=== PATIENT | male | born 1960 | race Caucasian/White ===

== ENCOUNTER 2024-07-23 09:43 | Outpatient (RCR) | payer MEDICARE, MEDICAID, SELFPAY ==
[2024-07-23 12:10] LABS: Basophils % (Auto) 1 % (0-2.5); Eosinophils # (Auto) 0.2 Thou/mm3 (0.0-0.5); Eosinophils % (Auto) 3 % (0-10); Hemoglobin 14.3 g/dL (13.5-16.0); Immature Granulocytes % (Auto) 1 % (0-0); Immature Granulocytes Auto 0.03 Thou/mm3 (0.00-0.00); Lymphocytes # (Auto) 2.4 Thou/mm3 (1.0-4.8); Lymphocytes % (Auto) 42 % (10-50); Mean Corpuscular Hemoglobin 32.3 pg (25.0-35.0); Mean Corpuscular Volume 95 fL (80-100); Monocytes # (Auto) 0.4 Thou/mm3 (0.0-0.8); Monocytes % (Auto) 8 % (0-12); Neutrophils # (Auto) 2.7 Thou/mm3 (1.8-7.7); Neutrophils % (Auto) 46 % (37-80); Nucleated Red Blood Cell % 0 /100 WBC (0); Platelet Count 192 Thou/mm3 (140-440); RDW Standard Deviation 43.2 fL (35.1-43.9); Red Blood Count 4.43 Miln/mm3 (4.50-5.90); White Blood Count 5.8 Thou/mm3 (3.8-10.6)
[2024-07-23 12:28] LABS: Alanine Aminotransferase 15 U/L (10-49); Albumin, Serum 4.4 gm/dL (3.4-4.8); Albumin/Globulin Ratio 2.2 (1.2-2.2); Alkaline Phosphatase 67 U/L (46-116); Anion Gap 7 (7-16); Aspartate Amino Transferase 24 U/L (0-34); BUN/Creatinine Ratio 22 Ratio (12-20); Blood Urea Nitrogen 24 mg/dL (9-23); Calcium 9.3 mg/dL (8.3-10.6); Calcium (Corrected) 9.3 mg/dL (8.5-10.1); Carbon Dioxide 25.7 mMol/L (20.0-31.0); Chloride 105 mMol/L (98-107); Creatinine (Component) 1.1 mg/dL (0.6-1.3); Free T4 (Free Thyroxine) 1.02 ng/dL (0.89-1.76); Glucose 89 mg/dL (74-106); Osmolality,Calculated 278 (275-295); Potassium 3.5 mMol/L (3.4-5.1); Sodium 138 mMol/L (136-145); Total Protein 6.4 gm/dL (5.7-8.2); eGFR > 60 See Note
[2024-07-23 12:29] LABS: Thyroid Stimulating Hormone 2.14 uIU/mL (0.55-4.78)
== END 2024-08-21 23:59 | disposition home or self-care (01) ==
LOC: SCTC 09:43
PROVIDERS: PCP Family Medicine; Referring Provider Family Medicine; Visit Provider Internal Medicine Hematology & Oncology
DX: C49.22 Malignant neoplasm of connective and soft tissue of left lower limb, including hip (principal); E03.9 Hypothyroidism, unspecified; Z89.512 Acquired absence of left leg below knee; I10 Essential (primary) hypertension; Z86.2 Personal history of diseases of the blood and blood-forming organs and certain disorders involving the immune mechanism
CPT/HCPCS: 36591; 80053; 84439; 84443; 85025; A4216; J1642

== ENCOUNTER 2024-09-09 08:49 | Outpatient (RCR) | payer MEDICARE, MEDICAID, SELFPAY ==
--- NOTE | 2024-09-05 20:56 | CTCFLWUP_ITS ---
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 He is doing well and have no complaints. His energy level have re turned. He has good appetite and not losing any weight Nicolette Bell is a 64-year-old ENG speaking male history of hypertension was recently foun d to have undifferentiated pleomorphic sarcoma of the left lower extremity. He was having pain in the left lower extremity for last 20 years. Recently started noticing masses w hich were ulcerating. he had one of the large ulcerating mass biopsied by Dr. Davion Bravo. 10/23/2022: Left lower leg mass excision? 10/31/2022: CT scan of the chest abdomen with IV contrast? 11/05/2022: PET/CT scan 11/07/2022: Ultrasound-guided fine-needle aspiration of the left inguinal lymph node? 11/22/2022: Patient underwent left knee amputation 01/08/2023: CT scan of the chest, abdomen and pelvis with contrast? 01/23/2023: This was discussed at the [facility] sarcoma tumor board 01/01/2024: CT scan of the chest abdomen and pelvis? 01/08/2024: Dr. Correa of [facility] saw Mr. Bell and recommended immune-based therapy with ipilimumab a nd nivolumab DIAGNOSIS: Stage IV pleomorphic dermal sarcoma, grade 3. TMB 9 mutations per megabyte S/p 4 cycles of Gemzar and Taxotere in the adjuvant setting (04/22/2023 - 08/06/2023) hypertension DATE OF DIAGNOSIS: STAGE/TNM: TREATMENT HISTORY: Care?Plan Start?Date Cycle Day Intent VENOfer?200mg?IV?wkly?for?10?weeks 11/19/2022 1 70 Palliative Gemcitabine?Taxotere 04/22/2023 1 21 Palliative Nivo?3?Ipi?1?sarcoma?[place]?[id number]?Part?1 01/15/2024 1 21 Palliative Nivo?3?Ipi?1?sarcoma?[place]?[id number]?Part?2 04/05/2024 1 14 Palliative OTHER MEDICAL HISTORY/CONDITIONS: HTN Hypertension Anemia Chronic Regional pain syndrome- left leg Appendectomy - age 26 Left knee surgery - 1996 FAMILY HISTORY: Mother:?Breast?-?dx?age?70 SOCIAL HISTORY: 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 Tobacco?Use:?Denies ETOH?Use:?Denies Drug?Note:?Denies Social?History?Note:?Lives?with? MEDICATIONS: 1. cetirizine - 10 mg 1 Capsule Daily 2. hydrocortisone - 10 mg 1 tab As directed 3. levothyroxine - 50 mcg 1 tab Daily 4. losartan - 50 mg 1 tab Daily 5. pantoprazole - 40 mg 1 tab Daily 6. Vitamin C - 500 mg 1 tab Three times a day Medications Last Reconciled by Homa Aguilera MA on 08/25/2024 ALLERGIES: tetracycline REVIEW OF SYSTEMS: A complete 14-point review of systems was performed and is negative except as noted in interval histo ry. PHYSICAL EXAMINATION: VITAL SIGNS: Temperature?98.4, B/P?132/84, Oxygen?Saturation?98% Weight?238?lbs PAIN: 0 - No pain ECOG Performance Status: 0 - Asymptomatic and fully active EYE: Conjunctivae is white MOUTH: Oral cavity is moist CHEST: Clear to auscultation. No wheezes or rales audible. CARDIAC: Rhythm regular, no murmurs or gallops present. ABDOMEN: Soft. No hepatomegaly. No splenomegaly. EXTREMITIES: Patient has left knee amputation. He has dressing on the surgical wound which is open a t this time. Wound care is helping with the healing. LABORATORY DATA: I have personally reviewed and interpreted each of the patient?s relevant lab tests, abnormal finding s are below: Date 07/23/24 ??WHITE?BLOOD?COUNT?(Thou/mm3) 5.8 ??RED?BLOOD?COUNT?(Miln/mm3) 4.43?L ??HEMOGLOBIN?(gm/dl) 14.3 ??HEMATOCRIT?(%) 42.0 ??PLATELET?COUNT?(Thou/mm3) 192 ??NEUTROPHILS?%,?AUTO?(%) 46 ??LYMPH?%,?AUTO?(%) 42 ??NEUTROPHILS,?AUTO?(Thou/mm3) 2.7 IMPRESSION/PLAN: #1 sarcoma Reviewed patient's records from [facility] Initially treated with gem cis followed by resection Patient received nivolumab and ipilimumab when he had recurrence Patient developed severe thyroiditis and hypophysitis Patient was seen by insole taper and requested to do TPO TSI and TG antibodies Patient also on prednisone Was advised to check a.m. ACTH and cortisol Advised was if cortisol less than 14 then consider stimulatory test If undetectable then repeat a.m. cortisol in 3 months Can repeat testosterone LH FSH as these labs help to differentiate suppression from illness and pitui tary dysfunction Discussed with patient that possibly patient can receive nivolumab in the future if the cancer comes back Most patients have reaction to ipilimumab compared to nivolumab It is still high risk I would like to keep Mr. Bell on prednisone when starting immunotherapy Will get PET CT scan to see if patient have any recurrence Will check TSH T4 cortisol at baseline TSH T4 cortisol LH FSH testosterone ACTH and PET CT scan RETURN TO CLINIC: 4 weeks BILLING AND COMPLIANCE: I reviewed external records from providers outside my specialty as summarized above. I spent a total of 50 minutes on this patient?s care on the day of their visit excluding time spent related to any bi lled procedures. This time includes time spent with the patient as well as time spent documenting in the medical record, reviewing patients records and tests, obtaining history, placing orders, communi cating with other healthcare professionals, counseling the patient, family or caregiver, and/or care coordination for the diagnoses above. Electronically Signed by: Matt Wright MD T: 8:54 PM CC: Kirt?Yue? PCP: Ajith Khanna Referring: Ajith Khanna This document was completed utilizing speech recognition software. Grammatical errors, random word in sertions, pronoun errors, and incomplete sentences are an occasional consequence of this system due t o software limitations, ambient noise, and hardware issues. Any formal questions or concerns about th e content, text or information contained within the body of this dictation should be directly address ed to the provider for clarification.
[2024-09-06 09:40] LABS: Basophils % (Auto) 1 % (0-2.5); Eosinophils # (Auto) 0.2 Thou/mm3 (0.0-0.5); Eosinophils % (Auto) 4 % (0-10); Hematocrit 40.8 % (41.0-53.0); Hemoglobin 14.1 g/dL (13.5-16.0); Immature Granulocytes % (Auto) 0 % (0-0); Immature Granulocytes Auto 0.02 Thou/mm3 (0.00-0.00); Lymphocytes # (Auto) 2.6 Thou/mm3 (1.0-4.8); Lymphocytes % (Auto) 52 % (10-50); Mean Corpuscular HGB Conc 34.6 g/dl (31.0-37.0); Mean Corpuscular Hemoglobin 31.3 pg (25.0-35.0); Mean Corpuscular Volume 91 fL (80-100); Monocytes # (Auto) 0.5 Thou/mm3 (0.0-0.8); Monocytes % (Auto) 9 % (0-12); Neutrophils # (Auto) 1.7 Thou/mm3 (1.8-7.7); Neutrophils % (Auto) 34 % (37-80); Nucleated Red Blood Cell % 0 /100 WBC (0); Platelet Count 180 Thou/mm3 (140-440); RDW Standard Deviation 38.5 fL (35.1-43.9); Red Blood Count 4.51 Miln/mm3 (4.50-5.90); White Blood Count 5.1 Thou/mm3 (3.8-10.6)
[2024-09-06 10:08] LABS: Alanine Aminotransferase 13 U/L (10-49); Albumin/Globulin Ratio 1.8 (1.2-2.2); Alkaline Phosphatase 70 U/L (46-116); Anion Gap 9 (7-16); Aspartate Amino Transferase 22 U/L (0-34); BUN/Creatinine Ratio 14 Ratio (12-20); Bilirubin,Total 0.8 mg/dL (0.3-1.2); Blood Urea Nitrogen 14 mg/dL (9-23); Calcium 9.3 mg/dL (8.3-10.6); Calcium (Corrected) 9.3 mg/dL (8.5-10.1); Carbon Dioxide 24.3 mMol/L (20.0-31.0); Chloride 109 mMol/L (98-107); Globulin 2.2 gm/dL (2.3-3.5); Glucose 88 mg/dL (74-106); Osmolality,Calculated 282 (275-295); Potassium 3.7 mMol/L (3.4-5.1); Sodium 142 mMol/L (136-145); Thyroid Stimulating Hormone 2.24 uIU/mL (0.55-4.78); Total Protein 6.2 gm/dL (5.7-8.2); eGFR > 60 See Note
[2024-09-06 10:25] LABS: Free T3 2.5 pg/mL (2.3-4.2)
[2024-09-09 13:49] LABS: LDH (Lactate Dehydrogenase) 204 U/L (120-246)
[2024-09-09 14:01] LABS: Follicle Stimulating Hormone 11.52 mIU/mL (See Note)
[2024-09-14 06:46] LABS: ACTH, Plasma* <5 pg/mL (6-50); Testosterone,Total* 351 ng/dL (250-1100)
[2024-09-21 06:26] LABS: Cortisol,total,LC/MS/MS* <1.0 mcg/dL
== END 2024-09-21 23:59 | disposition home or self-care (01) ==
LOC: SCTC 08:49
PROVIDERS: PCP Family Medicine; Referring Provider Family Medicine; Visit Provider Internal Medicine Hematology & Oncology
DX: C49.22 Malignant neoplasm of connective and soft tissue of left lower limb, including hip (principal)
CPT/HCPCS: 36591; 80053; 82024; 82530; 82533; 83001; 83615; 84403; 84443; 84481; 85025; 99212; A4216; J1642; G0463

== ENCOUNTER → 2024-10-07 | Outpatient (CLI) | payer MEDICARE, MEDICAID, SELFPAY ==
[2024-10-07 13:26] LABS: Alanine Aminotransferase 14 U/L (10-49); Albumin, Serum 4.5 gm/dL (3.4-4.8); Albumin/Globulin Ratio 2.4 (1.2-2.2); Alkaline Phosphatase 61 U/L (46-116); Anion Gap 8 (7-16); Aspartate Amino Transferase 22 U/L (0-34); BUN/Creatinine Ratio 17 Ratio (12-20); Bilirubin,Total 0.9 mg/dL (0.3-1.2); Blood Urea Nitrogen 20 mg/dL (9-23); Calcium 9.4 mg/dL (8.3-10.6); Calcium (Corrected) 9.4 mg/dL (8.5-10.1); Carbon Dioxide 27.7 mMol/L (20.0-31.0); Chloride 104 mMol/L (98-107); Creatinine (Component) 1.2 mg/dL (0.6-1.3); Globulin 1.9 gm/dL (2.3-3.5); Glucose 86 mg/dL (74-106); Osmolality,Calculated 281 (275-295); Potassium 4.3 mMol/L (3.4-5.1); Sodium 140 mMol/L (136-145); Total Protein 6.4 gm/dL (5.7-8.2); eGFR > 60 See Note
== END | disposition home or self-care (01) ==
LOC: COPL 11:26
PROVIDERS: PCP Family Medicine; Referring Provider Internal Medicine Cardiovascular Disease; Visit Provider Internal Medicine Cardiovascular Disease
DX: I25.89 Other forms of chronic ischemic heart disease (principal); I25.84 Coronary atherosclerosis due to calcified coronary lesion
CPT/HCPCS: 36415; 80053; 83735

== ENCOUNTER 2024-10-14 10:04 | Inpatient (IN) | payer MEDICARE, MEDICAID, SELFPAY ==
[2024-10-14] VITALS (8 sets, daily range): BP systolic 93–116; BP diastolic 55–74; PULSE 63–114; RESP 18–22; TEMP 36.1–39; O2SAT 94–99; BMI 32.5; BMI 34.4
--- NOTE | 2024-10-14 10:22 | XR_ITS ---
Examination: AP lateral chest 2 views TECHNIQUE: Upright AP lateral chest 2 views Exam date and time: February 20232024 1030 hours Comparison March 11, 2024 INDICATIONS: Coughing today. FINDINGS: Normal heart size Mild opacity right upper lobe Left subclavian Port-A-Cath tip satisfactory position Normal heart size IMPRESSION: Suspicious for early right upper lobe pneumonia
[2024-10-14 11:00] LABS: Basophils % (Auto) 1 % (0-2.5); Eosinophils % (Auto) 0 % (0-10); Hematocrit 43.2 % (41.0-53.0); Hemoglobin 15.1 g/dL (13.5-16.0); Immature Granulocytes % (Auto) 1 % (0-0); Immature Granulocytes Auto 0.07 Thou/mm3 (0.00-0.00); Lymphocytes # (Auto) 1.4 Thou/mm3 (1.0-4.8); Lymphocytes % (Auto) 23 % (10-50); Mean Corpuscular Hemoglobin 30.4 pg (25.0-35.0); Mean Corpuscular Volume 87 fL (80-100); Monocytes # (Auto) 0.5 Thou/mm3 (0.0-0.8); Monocytes % (Auto) 9 % (0-12); Neutrophils # (Auto) 4.2 Thou/mm3 (1.8-7.7); Neutrophils % (Auto) 67 % (37-80); Nucleated Red Blood Cell % 0 /100 WBC (0); Platelet Count 148 Thou/mm3 (140-440); RDW Standard Deviation 40.2 fL (35.1-43.9); Red Blood Count 4.96 Miln/mm3 (4.50-5.90); White Blood Count 6.2 Thou/mm3 (3.8-10.6)
[2024-10-14 11:14] LABS: Lactate (Lactic Acid) 1.1 mMol/L (0.4-2.0)
[2024-10-14 11:19] LABS: Alanine Aminotransferase 28 U/L (10-49); Albumin, Serum 4.5 gm/dL (3.4-4.8); Alkaline Phosphatase 58 U/L (46-116); Anion Gap 9 (7-16); Aspartate Amino Transferase 48 U/L (0-34); BUN/Creatinine Ratio 17 Ratio (12-20); Bilirubin,Total 1.8 mg/dL (0.3-1.2); Blood Urea Nitrogen 27 mg/dL (9-23); Calcium 9.7 mg/dL (8.3-10.6); Calcium (Corrected) 9.7 mg/dL (8.5-10.1); Carbon Dioxide 23.8 mMol/L (20.0-31.0); Chloride 98 mMol/L (98-107); Creatinine (Component) 1.6 mg/dL (0.6-1.3); Globulin 2.3 gm/dL (2.3-3.5); Glucose 96 mg/dL (74-106); Osmolality,Calculated 267 (275-295); Potassium 3.8 mMol/L (3.4-5.1); Procalcitonin 3.25 ng/ml (0.0-0.49); Sodium 131 mMol/L (136-145); Total Protein 6.8 gm/dL (5.7-8.2); eGFR 48 See Note
--- NOTE | 2024-10-14 11:25 | XR_ITS ---
Examination: CT brain head without contrast. 2-D sagittal coronal reconstructions Date and time of exam:October 14, 2024 and 57 hours INDICATIONS: Altered mental status today COMPARISON: March 11, 2024 CTDI: vol (mGy):49.4 DLP: (mGycm):1025 Technique: Multiple CT axial sections of the brain have been obtained, 5 mm slice thickness. Contrast has not been administered. 2-D sagittal, coronal reconstructions have been obtained Low dose protocols were performed. One or more of the following dose reduction techniques were used; automated exposure control, adjustment of the mA and/or KV according to patient size, use of iterative reconstruction technique. Findings: No significant ventricular enlargement. Intra-axial or extra-axial hemorrhage density is not seen. No mass effect or midline shift Basal cisterns are not remarkable. Fourth ventricle is midline. Cranial vault intact. Impression: Negative for acute hemorrhage, mass effect or midline shift Advise clinical correlation and follow-up accordingly
--- NOTE | 2024-10-14 11:41 | EDNOTE_ITS ---
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 He has a history of being treated with Nivolumab and Ipilimumab until 02/2024. He is being followed by Dr Wright at the cancer center. Patient was sent to the ER for documented fevers, chills and productive cough on his follow up appointment. Per at bedside, patients symptoms started 24 hours ago with bodyaches, and got progressively worse. This morning, patient was confused and not at his baseline. He also complained of chills and felt warm to touch. He reports yellowish phlegm on coughing, denies any blood. In the ED, vitals showed temp 101.9 , tachypnea 22 brpm, and tachycardia 114 bpm. Sepsis Alert called. Cultures ordered, broad spectrum antibiotics started. 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 Tobacco?Use:?Denies ETOH?Use:?Denies Drug?Note:?Denies Social?History?Note:?Lives?with? Family history: Mother:?Breast cancer?-?dx?age?70 Otherwise negative for SCD or strokes in the family. Related Data Home Medications ?Medication ?Instructions ?Recorded ?Confirmed losartan 25 mg tablet 50 mg PO QDAY 03/11/24 10/14/24 pantoprazole 40 mg tablet,delayed 40 mg PO HS 03/11/24 10/14/24 release cetirizine 10 mg tablet 10 mg PO QDAY 10/14/24 10/14/24 hydrocortisone 10 mg tablet 10 mg PO QDAY 10/14/24 10/14/24 hydrocortisone 5 mg tablet 5 mg PO HS 10/14/24 10/14/24 levothyroxine 50 mcg tablet 50 mcg PO QDAY 10/14/24 10/14/24 Previous Rx's ?Medication ?Instructions ?Recorded oseltamivir 75 mg capsule 75 mg PO BID 3 days #6 caps 10/15/24 Allergies Allergy/AdvReac Type Severity Reaction Status Date / Time melon Allergy Severe Swelling Verified 10/14/24 10:06 of Lip/Tongue/Throat erythromycin base Allergy Verified 10/14/24 10:06 Review of Systems Review of Systems Narrative Review of Systems: GENERAL: fevers/chills , no diaphoresis. HEENT: Denies headache or visual/hearing changes. Denies nasal discharge. NEURO: Denies unusual weakness or difficulty speaking. CARDIO: Denies chest pain or palpitations. PULM: Denies SOB, productive cough, no wheezing. GI: Denies abdominal pain, N/V/C/D. Reports having BMs URO: Denies burning/itching/pain/urinary changes. 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 MSK/EXT/SKIN: Denies joint/skeletal/muscle pain, issues/changes in upper or lower extremities, itchiness, or superficial pain. PSYCH: Cooperative, pleasant mood & affect. The rest of the review of systems is otherwise negative. ED Exam Narrative Physical exam: Constitutional Alert, oriented x3 and comfortable on RA, sats 95-97% HEENT Vision grossly intact. Patent nares. Trachea midline. Respiratory Chest normal on inspection and mild congestion on auscultation - RT lung. Cardiovascular S1 and S2 audible, RRR. No murmurs or carotid bruit. No gross JVD. Abdominal Soft and non tender to palpation in all quadrants. BS + Genitourinary No bladder tenderness, no flank pain. Normal to palpation. Musculoskeletal Extremities tone within normal limits. LT leg BKA. No LE edema. Neurological CN II - XII grossly intact. Extremity motor and sensation grossly intact. Skin Warm, dry and intact. No apparent lesions. Psychiatric Patient has a good affect, is cooperative. Course Course Course Narrative: Vitals: Temp 102 , HR 110-120bpm , RR 22-24brpm Labs: WBC : wnl, ANC : wnl. Procal = 3.25 MARLA = Cr 1.6, GFR 48 T.Bili = 1.8 Influenza A : + CXR : Right upper lobe consolidation, consistent with pneumonia Head CT: negative for any acute findings. Quality Measures VTE therapy Orders Category Date Time Status Admit to Inpatient Status Routine Admission 10/14/24 15:00 Active Patient Condition Routine Admission 10/14/24 15:01 Ordered Bedside COVID-19 Antigen Test NOW Care 10/14/24 10:22 Active Bedside Influenza A&B Antigen Test NOW Care 10/14/24 10:22 Completed Bedside Influenza A&B Antigen Test NOW Care 10/14/24 12:02 Active Flu & Pneumonia Vaccine Screen ONCE Care 10/14/24 15:01 Active Insert IV NOW Care 10/14/24 10:22 Active Miscellaneous Nursing Order NOW Care 10/14/24 15:38 Active Notify provider NEEDED Care 10/14/24 15:01 Active Diet Regular Diet 10/14/[address] head/brain wo con Stat Exams 10/14/24 11:25 Completed XR chest 2V Stat Exams 10/14/24 10:22 Completed Blood Culture (Lab) Stat Lab 10/14/24 10:40 Results CBC AM DRAW Lab 10/15/24 05:13 Completed CBC AM DRAW Lab 10/16/24 05:00 Ordered CBC AM DRAW Lab 10/17/24 05:00 Ordered CBC AM DRAW Lab 10/18/24 05:00 Ordered CBC AM DRAW Lab 10/19/24 05:00 Ordered CBC Stat Lab 10/14/24 10:45 Completed Comprehensive Metabolic Panel AM DRAW Lab 10/15/24 05:13 Completed Comprehensive Metabolic Panel AM DRAW Lab 10/16/24 05:00 Ordered Comprehensive Metabolic Panel AM DRAW Lab 10/17/24 05:00 Ordered Comprehensive Metabolic Panel AM DRAW Lab 10/18/24 05:00 Ordered Comprehensive Metabolic Panel AM DRAW Lab 10/19/24 05:00 Ordered Comprehensive Metabolic Panel Stat Lab 10/14/24 10:45 Completed Lactate (Lactic Acid) Stat Lab 10/14/24 11:09 Completed Lactate (Lactic Acid) Stat Lab 10/14/24 15:37 Completed Magnesium AM DRAW Lab 10/15/24 05:13 Completed Magnesium AM DRAW Lab 10/16/24 05:00 Ordered Magnesium AM DRAW Lab 10/17/24 05:00 Ordered Magnesium AM DRAW Lab 10/18/24 05:00 Ordered Magnesium AM DRAW Lab 10/19/24 05:00 Ordered Procalcitonin Stat Lab 10/14/24 10:45 Completed Sputum Culture and Gram Stain Stat Lab 10/14/24 12:02 Ordered TSH [Thyroid Stimulating Hormone] Stat Lab 10/14/24 11:09 Completed Thyroid Stimulating Hormone AM DRAW Lab 10/15/24 05:13 Completed Urinalysis Stat Lab 10/14/24 16:56 Completed Urine Culture Stat Lab 10/14/24 16:56 Received Acetaminophen Tab [Tylenol ES Tab] Med 10/14/24 10:22 Discontinued 1,000 mg PO X1 ONE Acetaminophen Tab [Tylenol Tab] Med 10/14/24 15:00 Active 650 mg PO Q6H PRN Acetaminophen Tab [Tylenol Tab] Med 10/14/24 15:00 Active 650 mg PO Q6H PRN Atorvastatin Calcium [Lipitor] Med 10/14/24 21:00 Active 80 mg PO HS Azithromycin Po [Zithromax PO] Med 10/15/24 09:00 Active 500 mg PO QDAY Docusate Sod [Colace] Med 10/15/24 09:00 Active 100 mg PO QDAY Doxycycline Inj [Vibramycin Inj] 200 mg Med 10/14/24 11:53 Discontinued Sodium Chloride 0.9% 250 ml [Ns] 250 ml IV X1 Heparin Inj Med 10/14/24 22:00 Active 5,000 unit SC Q8HR Hydrocortisone [Cortef] Med 10/14/24 21:00 Active 10 mg PO HS Hydrocortisone [Cortef] Med 10/14/24 15:15 Active 20 mg PO QAM Levothyroxine Sodium [Synthroid] Med 10/15/24 06:00 Active 50 mcg PO ACBR Melatonin Med 10/14/24 21:00 Active 3 mg PO HS Ondansetron Inj [Zofran Inj] Med 10/14/24 15:00 Active 4 mg IV Q6H PRN Oseltamivir [Tamiflu] Med 10/14/24 21:00 Active 75 mg PO BID Oseltamivir [Tamiflu] Med 10/14/24 12:21 Discontinued 75 mg PO X1 ONE Pantoprazole [Protonix] Med 10/15/24 09:00 Active 40 mg PO QDAY Piper/Tazo 3.375 gm [Zosyn] 50 ml Med 10/14/24 11:54 Discontinued IV X1 Sodium Chloride 0.9% 1000 ml [Ns] 1,000 ml Med 10/14/24 15:10 Discontinued IV 999 mls/hr Sodium Chloride 0.9% 1000 ml [Ns] 2,994 ml Med 10/14/24 11:25 Discontinued IV 2,994 mls/hr Sodium Chloride Rt [place] 10% [NS Rt Adwoa 10%] Med 10/14/24 12:02 Discontinued 5 ml INH X1 ONE cefTRIAXone/D5w 1gm IV premix [Rocephin/D5w 1gm IV Med 10/14/24 15:06 Active premix] 50 ml IV QDAY Code Status Routine Oth 10/14/24 15:00 Completed Sputum Induction PRN RT 10/14/24 12:15 Ordered Vital Signs Vital signs: Vital Signs Temperature 101.9 F H 10/14/24 10:14 Pulse Rate 114 H 10/14/24 10:14 Respiratory Rate 22 H 10/14/24 10:14 Blood Pressure 103/68 10/14/24 10:14 Pulse Oximetry (%) 95 10/14/24 10:14 Oxygen Delivery Method Room Air 10/14/24 10:14 [facility] Patient data External records reviewed:: [facility] previous records Clinical information provided by:: patient and spouse Social determinants that could affect healthcare access:: none Patient has the following chronic illnesses:: 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, with lung metastasis, GERD, primary HTN, secondary hypothyroidism and adrenal insufficiency in the setting of hypophysitis How is presenting disease/condition affected by chronic disease/condition?: e xacerbated by Evaluation data The following diagnostics were reviewed and interpreted by me:: lab results, radiology exam(s) and EKG tracing(s) Lab and/or radiology exams considered but not ordered:: CTA chest Interpretation Summary: Sepsis secondary to RUL pneumonia , influenza A + Medications Medications considered but not ordered:: Loading dose solumedrol Medication administrations:: Medication Administration History Acetaminophen (Acetaminophen 325 Mg Tablet) 650 mg PO Q6H PRN PRN Reason: Fever >100.5 Stop: 11/13/24 14:59 Acetaminophen (Acetaminophen 325 Mg Tablet) 650 mg PO Q6H PRN PRN Reason: PAIN SCALE 1-3 (mild Stop: 11/13/24 14:59 Last Admin: 10/15/24 05:44 Dose: 650 mg Documented By: KARYN Albuterol/Ipratropium (Albuterol/Ipratropium (Duoneb) Rt Adwoa 3 Ml Nebu) 3 ml INH Q6HRRT PRN PRN Reason: SHORTNESS OF BREATH OR WHEEZE Stop: 11/13/24 15:46 Last Admin: 10/15/24 12:14 Dose: 3 ml Documented By: CHRISTIE Atorvastatin Calcium (Atorvastatin Calcium 20 Mg Tablet) 80 mg PO [facility] Stop: 11/13/24 20:59 Last Admin: 10/14/24 21:37 Dose: 80 mg Documented By: KARYN Azithromycin (Azithromycin 250 Mg Tablet) 500 mg PO QDAY [facility] Stop: 10/22/24 08:59 Last Admin: 10/15/24 09:01 Dose: 500 mg Documented By: Docusate Sodium (Docusate Sod 100 Mg Capsule) 100 mg PO QDAY [facility]; Protocol Stop: 11/14/24 08:59 Last Admin: 10/15/24 09:14 Dose: Not Given Documented By: Non-Admin Reason: Patient Refused Heparin Sodium (Porcine) (Heparin Sod Inj 5000 Unit/Ml Vial) 5,000 unit SC Q8HR [facility] Stop: 10/28/24 21:59 Last Admin: 10/15/24 14:11 Dose: 5,000 unit Documented By: Co-signed By: JEANETTE Admin: 10/15/24 05:43 Dose: 5,000 unit Documented By: KARYN Co-signed By: TOM Admin: 10/14/24 21:37 Dose: 5,000 unit Documented By: KARYN Co-signed By: TOM Hydrocortisone (Hydrocortisone 5 Mg Tablet) 20 mg PO QAM [facility] Stop: 10/16/24 15:14 Last Admin: 10/15/24 09:01 Dose: 20 mg Documented By: Admin: 10/14/24 19:44 Dose: 20 mg Documented By: KARYN Hydrocortisone (Hydrocortisone 5 Mg Tablet) 10 mg PO HS [facility] Stop: 10/16/24 20:59 Last Admin: 10/14/24 21:37 Dose: 10 mg Documented By: KARYN Ceftriaxone Sodium/Dextrose (Rocephin/D5w 1gm Iv Premix) 50 mls @ 100 mls/hr IV QDAY [facility] Stop: 10/21/24 15:05 Last Admin: 10/15/24 09:00 Dose: 100 mls/hr Documented By: Infusion: 10/14/24 20:14 Dose: Infused Documented By: Admin: 10/14/24 19:44 Dose: 100 mls/hr Documented By: KARYN Sodium Chloride (Ns) 1,000 mls @ 80 mls/hr IV .[id number] [facility] Stop: 11/13/24 17:33 Last Admin: 10/15/24 08:20 Dose: 80 mls/hr Documented By: Infusion: 10/15/24 08:02 Dose: Infused Documented By: Admin: 10/14/24 19:32 Dose: 80 mls/hr Documented By: KARYN Levothyroxine Sodium (Levothyroxine Sodium 25 Mcg Tablet) 50 mcg PO ACBR [facility] Stop: 11/14/24 05:59 Last Admin: 10/15/24 05:44 Dose: 50 mcg Documented By: KARYN Melatonin (Melatonin 3 Mg Tablet) 3 mg PO [facility] Stop: 11/13/24 20:59 Last Admin: 10/14/24 21:34 Dose: Not Given Documented By: KARYN Non-Admin Reason: Patient Refused Ondansetron HCl (Ondansetron Inj 2 Mg/Ml Inj 2 Ml) 4 mg IV Q6H PRN; Protocol PRN Reason: NAUSEA OR VOMITING Stop: 11/13/24 14:59 Oseltamivir Phosphate (Oseltamivir 75 Mg Capsule) 75 mg PO BID [facility] Stop: 10/21/24 20:59 Last Admin: 10/15/24 09:01 Dose: 75 mg Documented By: Admin: 10/14/24 21:37 Dose: 75 mg Documented By: CG Pantoprazole Sodium (Pantoprazole 40 Mg Tablet) 40 mg PO QDAY [facility] Stop: 11/14/24 08:59 Last Admin: 10/15/24 09:00 Dose: 40 mg Documented By: SN Discontinued Medications Acetaminophen (Acetaminophen 500 Mg Tablet) 1,000 mg PO X1 ONE Stop: 10/14/24 10:23 Last Admin: 10/14/24 12:47 Dose: 1,000 mg Documented By: ED Sodium Chloride (Ns) 2,994 mls @ 2,994 mls/hr 30 ml/kg infuse over 60 min (2994 ml) IV .Q1H ONE; Protocol Stop: 10/14/24 12:24 Last Admin: 10/14/24 13:11 Dose: 2,994 mls/hr Documented By: ED Doxycycline Hyclate 200 mg/ (Sodium Chloride) 250 mls @ 125 mls/hr IV X1 ONE Stop: 10/14/24 13:52 Last Infusion: 10/14/24 17:01 Dose: Infused Documented By: Admin: 10/14/24 14:26 Dose: 125 mls/hr Documented By: ED Piperacillin/Tazobactam/Dextrose (Zosyn) 50 mls @ 100 mls/hr IV X1 ONE Stop: 10/14/24 12:23 Last Infusion: 10/14/24 13:45 Dose: Infused Documented By: Admin: 10/14/24 13:12 Dose: 100 mls/hr Documented By: ED Sodium Chloride (Ns) 1,000 mls @ 999 mls/hr IV .Q1H1M ONE Stop: 10/14/24 16:10 Oseltamivir Phosphate (Oseltamivir 75 Mg Capsule) 75 mg PO X1 ONE Stop: 10/14/24 12:22 Last Admin: 10/14/24 12:48 Dose: 75 mg Documented By: ED Sodium Chloride (Sodium Chloride Rt 10% 15 Ml Nebu) 5 ml INH X1 ONE Stop: 10/14/24 12:03 per sepsis protocol Consultations Consultation(s) initiated? (list below): Yes Diagnosis Differential Diagnosis ED Complaint MDM: PE Most likely diagnosis given after review of the tests above:: sepsis secondary to RT upper lobe pneumonia Admission Indicated Admission indicated?: indicated Explain why admission is indicated or not indicated:: sepsis Admission Request Was there a request for admission?: Yes Admission Attestation Admission request attestation: Discussed case with [] from Hospitalist service regarding admission. Discussed patients ED course, exam findings, labs, and radiology results. The Hospitalist [agrees,declines] to accept the patient for admission. Disposition Plan Disposition Plan: Admit Medical Decision Making MDM Narrative MDM Narrative: Patient is a 64 year old male with history of stage IV sarcoma and immuno- suppression with steroids for management of adrenal insufficiency, who was sent by Dr Wright from the cancer center for fever, productive cough and altered mentation. Diagnosis: In the ED sepsis alert was initiated for SIRS 3, elevated WBC and source on CXR, which showed RT upper lobe PNA. Head CT negative, mentation returned to baseline in ER. Plan: - IVF : 2.99 L per sepsis protocol - IV Doxycycline 200mg x1 given - IV Zosyn 3.375 x1 given - Cultures ordered - blood, urine and sputum, follow up results - Acetaminophen 1g x1 given for fever - No need for precautions as ANC within normal limits, no neutropenia noted Patient to be admitted by IM hospitalist team for further monitoring and management Differential Diagnosis Differential Diagnosis: PE Lab Data 10/15/24 05:13 10/15/24 05:13 Labs: Lab Results 10/14/24 10/14/24 10/14/24 Range/Units 10:45 11:09 15:37 WBC 6.2 (3.8-10.6) Thou/mm3 RBC 4.96 (4.50-5.90) Miln/mm3 Hgb 15.1 (13.5-16.0) g/dL Hct 43.2 (41.0-53.0) % MCV 87 (80-100) fL MCH 30.4 (25.0-35.0) pg MCHC 35.0 (31.0-37.0) g/dl RDW Std Deviation 40.2 (35.1-43.9) fL Plt Count 148 D (140-440) Thou/mm3 Neut % (Auto) 67 (37-80) % Lymph % (Auto) 23 (10-50) % [place] % (Auto) 9 (0-12) % Eos % (Auto) 0 (0-10) % Baso % (Auto) 1 (0-2.5) % Neut # (Auto) 4.2 (1.8-7.7) Thou/mm3 Lymph # (Auto) 1.4 (1.0-4.8) Thou/mm3 [place] # (Auto) 0.5 (0.0-0.8) Thou/mm3 Eos # (Auto) 0.0 (0.0-0.5) Thou/mm3 Baso # (Auto) 0.0 (0.0-0.2) Thou/mm3 Immature Gran # (Auto) 0.07 H (0.00-0.00) Thou/mm3 Absolute Nucleated RBC 0.00 (0.00-0.00) Thou/mm3 Immature Gran % 1 H (0-0) % Nucleated RBC % 0 (0) /100 WBC Sodium 131 L (136-145) mMol/L Potassium 3.8 (3.4-5.1) mMol/L Chloride 98 (98-107) mMol/L Carbon Dioxide 23.8 (20.0-31.0) mMol/L Anion Gap 9 (7-16) BUN 27 H (9-23) mg/dL Creatinine 1.6 H (0.6-1.3) mg/dL Estim Creat Clear Calc 55.0 L (>60) mL/min eGFR 48 L (60 - ) See Note BUN/Creatinine Ratio 17 (12-20) Ratio Glucose 96 (74-106) mg/dL Calculated Osmolality 267 L (275-295) Lactic Acid 1.1 1.2 (0.4-2.0) mMol/L Calcium 9.7 (8.3-10.6) mg/dL Corrected Calcium 9.7 (8.5-10.1) mg/dL Total Bilirubin 1.8 H (0.3-1.2) mg/dL AST 48 H (0-34) U/L ALT 28 (10-49) U/L Alkaline Phosphatase 58 (46-116) U/L Total Protein 6.8 (5.7-8.2) gm/dL Albumin 4.5 (3.4-4.8) gm/dL Globulin 2.3 (2.3-3.5) gm/dL Albumin/Globulin Ratio 2.0 (1.2-2.2) Procalcitonin 3.25 H (0.0-0.49) ng/ml TSH 3.33 (0.55-4.78) uIU/mL Discharge Plan Plan Patient Disposition: Admit Acute Care w/in Hospital Patient condition on transfer: Stable Problem List Clinical Impression: 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 I, the supervising physician, also encountered and examined the patient and remained throughout present during the entire ER visit. Deliberation with the PGY 2, workup, management, treatment, medical decision making, and documentation was formulated. I agree with the plan and documentation.
--- NOTE | 2024-10-14 12:10 | PC.NURSE ---
Pt. here from home to room 8 with his spouse at bedside, spouse states that pt. has been confused at times at home and weaker the last 2 days. Spouse states 2 days ago pt. started with a fever and cough. Pt. states he had a amputation of the left lower leg at left knee in 2022. Amputation is healed and pt. states he can still ambulate. No s/s of distress at this time.
[2024-10-14] MEDS: ACETAMINOPHEN 500 MG TABLET 1000 MG PO (12:47)
[2024-10-14] MEDS: OSELTAMIVIR 75 MG CAPSULE PO ×2 (12:48→21:37)
[2024-10-14 13:11] LABS: Thyroid Stimulating Hormone 3.33 uIU/mL (0.55-4.78)
[2024-10-14] MEDS: SODIUM CHLORIDE 0.9% 2994 ML IV (13:11)
[2024-10-14] MEDS: PIPER/TAZO 3.375 GM 50 ML IV (13:12)
[2024-10-14] MEDS: DOXYCYCLINE INJ 200 MG in SODIUM CHLORIDE 0.9% 250 ML 250 ML 125 MG IV (14:26)
--- NOTE | 2024-10-14 15:12 | ESHP_ITS ---
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 He has a history of being treated with Nivolumab and Ipilimumab until 02/2024. He is being followed by Dr. Wright at the cancer center. Patient reports about 2 to 3 days ago patient started develop a cough and episodes of intermittent confusion, generalized weakness, vomiting, fever and watery diarrhea. Denies headache, blurry vision, shortness of breath, chest pain, abdominal pain, urinary changes. ED course: In the ED vitals significant for tachypnea, tachycardia, febrile 101.3. Labs significant for sodium 131, T. bili 1.8, AST 48, Pro-Tony 3.25. Chest x-ray shows right upper lobe pneumonia, head CT negative for any acute hemorrhage, midline shift, mass effect. Influenza A at a positive. In the ED patient received 2 L, Tamiflu,, Zosyn, doxycycline PMHx: As above SxHx: Appendectomy, left below-knee amputation Social Hx: Denies tobacco, denies illicit drug use including THC, denies alcohol use FHx: Unknown Review of Systems Review of Systems Narrative Review of Systems: Narrative ROS GENERAL: Denies fevers/chills or diaphoresis. HEENT: Denies headache or visual/hearing changes. Denies nasal discharge. NEURO: + weakness, denies difficulty speaking. CARDIO: Denies chest pain or palpitations. PULM: Denies SOB, +coughing, + wheezing. GI: Denies abdominal pain, N/V/C/D/reflux/gas, bright red blood per rectum or melena. Reports having BMs. URO: Denies burning/itching/pain/urinary changes. MSK/EXT/SKIN: Denies joint/skeletal/muscle pain, issues/changes in upper or lower extremities, itchiness, or superficial pain. PSYCH: Cooperative, pleasant mood & affect. The rest of the review of systems is otherwise negative. Exam Vital Signs Temp Pulse Resp BP Pulse Ox O2 Del Method 99.9 F 97 18 106/69 99 Room Air 10/14/24 14:28 10/14/24 14:09 10/14/24 14:09 10/14/24 14:09 10/14/24 14:09 10/14/24 14:09 Narrative Exam Physical Exam GENERAL: NAD, AAOx3 HEENT: Moist mucosa. Eyes open, symmetrical, & clear CARDIO: Heart RRR, no obvious murmurs PULM: Coughing, bilateral wheezing GI: Abdomen soft, nondistended, no pain on palpation. BSx4 SKIN/MSK/EXT: Left BKA, no pain on palpation. Pedal pulses present B/L NEURO: AAOx3, no focal neuro deficits, able to move all 4 extremities Results: Labs 10/14/24 10:45 10/14/24 10:45 Labs: Short CBC 10/14/24 Range/Units 10:45 WBC 6.2 (3.8-10.6) Thou/mm3 Hgb 15.1 (13.5-16.0) g/dL Hct 43.2 (41.0-53.0) % Plt Count 148 D (140-440) Thou/mm3 BMP 10/14/24 10:45 Sodium 131 L Potassium 3.8 Chloride 98 Carbon Dioxide 23.8 BUN 27 H Creatinine 1.6 H Glucose 96 Calcium 9.7 Liver Function 10/14/24 Range/Units 10:45 Total Bilirubin 1.8 H (0.3-1.2) mg/dL AST 48 H (0-34) U/L ALT 28 (10-49) U/L Alkaline Phosphatase 58 (46-116) U/L Albumin 4.5 (3.4-4.8) gm/dL Quality Measures Quality Measures VTE therapy Medications Home Medications and Allergies Home Medications ?Medication ?Instructions ?Recorded ?Confirmed ?Type gabapentin 600 mg tablet 600 mg PO BID 01/30/23 03/18/24 History atorvastatin 20 mg tablet 60 mg PO BID 03/11/24 03/18/24 History ferrous sulfate 325 mg (65 mg 325 mg PO QDAY 03/11/24 03/18/24 History iron) tablet loratadine 10 mg tablet 10 mg PO QDAY 03/11/24 03/18/24 History losartan 25 mg tablet 25 mg PO QDAY 03/11/24 03/18/24 History pantoprazole 40 mg tablet,delayed 40 mg PO QDAY 03/11/24 03/18/24 History release Allergies Allergy/AdvReac Type Severity Reaction Status Date / Time melon Allergy Severe Swelling Verified 10/14/24 10:06 of Lip/Tongue/Throat erythromycin base Allergy Verified 10/14/24 10:06 Visit Medications Acetaminophen (Acetaminophen 325 Mg Tablet) 650 mg PO Q6H PRN PRN Reason: Fever >100.5 Stop: 11/13/24 14:59 Acetaminophen (Acetaminophen 325 Mg Tablet) 650 mg PO Q6H PRN PRN Reason: PAIN SCALE 1-3 (mild Stop: 11/13/24 14:59 Azithromycin (Azithromycin 250 Mg Tablet) 500 mg PO QDAY AL Stop: 10/22/24 08:59 Docusate Sodium (Docusate Sod 100 Mg Capsule) 100 mg PO QDAY AL; Protocol Stop: 11/14/24 08:59 Heparin Sodium (Porcine) (Heparin Sod Inj 5000 Unit/Ml Vial) 5,000 unit SC Q8HR AL Stop: 10/28/24 21:59 Hydrocortisone (Hydrocortisone 5 Mg Tablet) 20 mg PO QAM AL Stop: 10/16/24 15:14 Hydrocortisone (Hydrocortisone 5 Mg Tablet) 10 mg PO HS AL Stop: 10/16/24 20:59 Ceftriaxone Sodium/Dextrose (Rocephin/D5w 1gm Iv Premix) 50 mls @ 100 mls/hr IV QDAY AL Stop: 10/21/24 15:05 Sodium Chloride (Ns) 1,000 mls @ 999 mls/hr IV .Q1H1M ONE Stop: 10/14/24 16:10 Melatonin (Melatonin 3 Mg Tablet) 3 mg PO HS AL Stop: 11/13/24 20:59 Ondansetron HCl (Ondansetron Inj 2 Mg/Ml Inj 2 Ml) 4 mg IV Q6H PRN; Protocol PRN Reason: NAUSEA OR VOMITING Stop: 11/13/24 14:59 Oseltamivir Phosphate (Oseltamivir 75 Mg Capsule) 75 mg PO BID AL Stop: 10/21/24 20:59 Discontinued Medications Acetaminophen (Acetaminophen 500 Mg Tablet) 1,000 mg PO X1 ONE Stop: 10/14/24 10:23 Last Admin: 10/14/24 12:47 Dose: 1,000 mg Sodium Chloride (Ns) 2,994 mls @ 2,994 mls/hr 30 ml/kg infuse over 60 min (2994 ml) IV .Q1H ONE; Protocol Stop: 10/14/24 12:24 Last Admin: 10/14/24 13:11 Dose: 2,994 mls/hr Doxycycline Hyclate 200 mg/ (Sodium Chloride) 250 mls @ 125 mls/hr IV X1 ONE Stop: 10/14/24 13:52 Last Admin: 10/14/24 14:26 Dose: 125 mls/hr Piperacillin/Tazobactam/Dextrose (Zosyn) 50 mls @ 100 mls/hr IV X1 ONE Stop: 10/14/24 12:23 Last Infusion: 10/14/24 13:45 Dose: Infused Oseltamivir Phosphate (Oseltamivir 75 Mg Capsule) 75 mg PO X1 ONE Stop: 10/14/24 12:22 Last Admin: 10/14/24 12:48 Dose: 75 mg Sodium Chloride (Sodium Chloride Rt 10% 15 Ml Nebu) 5 ml INH X1 ONE Stop: 10/14/24 12:03 Assessment & Plan Plan 64-year-old male with past medical history of 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 Patient reports about 2 to 3 days ago patient started develop a cough episodes of intermittent confusion, generalized weakness, vomiting, fever and watery diarrhea. Admitted for influenza A with superimposed pneumonia. #Sepsis secondary to #Influenza A #Right upper lobe pneumonia On presentation patient came tachycardic, tachypneic, febrile with organ dysfunction in the kidney with MARLA and elevated T. bili Patient noted to have a cough thought it was allergies but slowly progressing patient became weak and confused In the ED patient tested positive for influenza A Procalcitonin 3.25, lactic acid normal Chest x-ray showed right upper lobe pneumonia On examination patient is noted to have bilateral wheezing In the ED received Tamiflu, 2 L NS, Zosyn, doxycycline -Ordered 1 L NS for sepsis bolus 30 mL/kg -On Tamiflu -DuoNebs as needed -On ceftriaxone and azithromycin [10/14/2024-] -Pending blood cultures -Pending sputum cultures -UA pending #History of dermal sarcoma stage IV # History of adrenal sufficiency He has a history of being treated with Nivolumab and Ipilimumab until 02/2024. He is being followed by Dr. Wright at the cancer center Per patient has stage III sarcoma with metastasis to the lungs as well as metastasis to the inguinal lymph nodes he is status post inguinal lymph node resection -Hydrocortisone 20 mg a.m. and 10 mg at bedtime for 3 days; currently day #2 -Will start hydrocortisone 10 mg in the a.m. and 5 mg at bedtime after patient finishes current steroid regimen #Elevated total bilirubin #Mildly elevated liver enzymes Likely secondary to sepsis process -Monitor at this time #Acute kidney injury?likely prerenal, -gentle IV fluids #Hypertension At this time patient's blood pressure is alternative -Consider resuming the hypertensives once BP permits #Hypothyroidism TSH normal -Resume levothyroxine 50 micrograms as taken at home #Hyperlipidemia -Resume atorvastatin 80 mg as taken at home Case discussed with my senior Dr. Terrazas PGY-[address] Nora Springer MD PGY-1 Disposition: Med telemetry Fluids: NS Feeding: Regular Thrombo prophylaxis: Heparin Gastric Ulcer prophylaxis: Pantoprazole CODE STATUS: Full code Senior resident attestation: Patient is 61-year-old male with past medical history of stage IV dermal sarcoma mets to lungs, status post BKA, s/p chemotherapy, currently on immunotherapy, history of thyroid storm and adrenal insufficiency, hyperlipidemia and hypertension who presented to the ED with confusion and weakness. Also complaining of vomiting and fever. Tested positive for influenza A, chest x-ray concerning for pneumonia. #Sepsis #Right upper lobe pneumonia?IV antibiotics ceftriaxone and azithromycin, follow cultures. #Influenza A?Tamiflu #Acute kidney injury?likely prerenal, gentle IV fluids #Hyperbilirubinemia?reported history of elevated bilirubin levels, currently T. bili mildly elevated, will continue to trend, consider gastroenterology consult if continued uptrend, patient reported no history of right upper quadrant pain, or cholelithiasis. #Adrenal insufficiency?follows director of nuclear medicine Dr. Thomas, on hydrocortisone 10 mg in the a.m. and 5 mg in the p.m., per patient's family they spoke to the director of nuclear medicine who recommended increasing the dose to hydrocortisone 20 mg in the a.m. and 10 mg in the p.m. during acute illness. #History of thyroid storm #History of hypothyroidism?resume home dose of levothyroxine 50 mcg ACBR #History of sarcoma status post BKA?follows Dr. Cartwright oncologist, currently on immunotherapy. Patient evaluated and examined at the bedside, plan of care discussed with rest of the team including my attending physician, except as noted. Quresh PGY2 Attending Provider Attestation/Addendum IChio, , attest that I was physically present for the bauer portions of the service and evaluated the patient with the resident and I reviewed and discussed the case with the resident and agree with the resident's findings and plans of care as documented above Patient is a 64-year-old male with past medical history of adrenal insufficiency, hypothyroidism, hypertension, stage IV dermal sarcoma status post chemotherapy and immunotherapy who presented to the ED after he started to cough/fever that began yesterday with some intermittent confusion. Patient endorses having an episode of diarrhea, productive sputum, nausea and vomiting. was at bedside and denies any sick contacts. Patient was due to see his oncologist today, but was progressively more confused and brought to the ED. Patient tested positive for improvement in right upper lobe pneumonia. Will start patient on coverage of atypical pneumonia from gram-negative pneumonia with azithromycin. Will also start on Tamiflu. Patient was recently started on hydrocortisone 20 mg in a.m. and 10 mg nightly. Will continue with current regimen. Will admit patient to med/telemetry for further workup and medical management of pneumonia versus influenza A. He is noted to have a acute kidney injury will continue with IV fluid hydration. Suspect that bilirubin may be elevated secondary to dehydration as well. Will follow-up with cultures.
[2024-10-14 15:43] LABS: Lactate (Lactic Acid) 1.2 mMol/L (0.4-2.0)
--- NOTE | 2024-10-14 17:06 | PC.NURSE ---
Pt.'s daughter and spouse are bedside.
[2024-10-14 17:08] LABS: Collection Type, Urine Clean Catch; Squamous Epithelial Cell,Urine 0 /hpf (0-5)
[2024-10-14 17:30] LABS: Amorphous Crystals,Urine Present (Absent); Bilirubin,Urine Negative (Negative); Blood,Urine Negative (Negative); Clarity,Urine Clear (Clear/Hazy); Color,Urine Yellow (Lt Yel-Yel); Glucose, Urine Negative (Negative); Hyaline Casts,Urine < 1 /hpf (0-1); Ketones,Urine Trace (Negative); Leukocyte Esterase,Urine Negative (Negative); Nitrite,Urine Negative (Negative); PH,Urine 5.5 (5.0-7.0); Protein,Urine 1+ (Neg - Trace); RBC,Urine 3 /hpf (0-3); Specific Gravity,Urine 1.031 (1.001-1.035); Urobilinogen,Urine Negative mg/dL (0.0-1.0); WBC,Urine 3 /hpf (0-5)
--- NOTE | 2024-10-14 18:40 | PC.NURSE ---
patient arrived on unit BP 103/68, HR 88, temp 99.0, patient comfortable in bed states no complaints at this time
[2024-10-14] MEDS: SODIUM CHLORIDE 0.9% 1000 ML 1,000 ML 80 ML IV (19:32)
[2024-10-14] MEDS: cefTRIAXone/D5w 1gm IV premix 50 ML IV (19:44)
[2024-10-14] MEDS: HYDROCORTISONE 5 MG TABLET 20 MG PO (19:44)
[2024-10-14] MEDS: HEPARIN SOD INJ 5000 UNIT/ML VIAL SC (21:37)
[2024-10-14] MEDS: ATORVASTATIN CALCIUM 20 MG TABLET 80 MG PO (21:37)
[2024-10-14] MEDS: HYDROCORTISONE 5 MG TABLET 10 MG PO (21:37)
[2024-10-15] VITALS (11 sets, daily range): BP systolic 91–121; BP diastolic 58–74; PULSE 61–96; RESP 16–18; TEMP 36.1–37.8; O2SAT 93–100
[2024-10-15] MEDS: HEPARIN SOD INJ 5000 UNIT/ML VIAL SC ×2 (05:43→14:11)
[2024-10-15] MEDS: ACETAMINOPHEN 325 MG TABLET 650 MG PO (05:44)
[2024-10-15] MEDS: LEVOTHYROXINE SODIUM 25 MCG TABLET 50 MCG PO (05:44)
[2024-10-15 06:10] LABS: Basophils % (Auto) 0 % (0-2.5); Eosinophils % (Auto) 0 % (0-10); Hematocrit 37.3 % (41.0-53.0); Immature Granulocytes % (Auto) 1 % (0-0); Immature Granulocytes Auto 0.03 Thou/mm3 (0.00-0.00); Lymphocytes # (Auto) 1.1 Thou/mm3 (1.0-4.8); Lymphocytes % (Auto) 22 % (10-50); Mean Corpuscular HGB Conc 34.9 g/dl (31.0-37.0); Mean Corpuscular Hemoglobin 30.7 pg (25.0-35.0); Mean Corpuscular Volume 88 fL (80-100); Monocytes # (Auto) 0.5 Thou/mm3 (0.0-0.8); Monocytes % (Auto) 10 % (0-12); Neutrophils # (Auto) 3.3 Thou/mm3 (1.8-7.7); Neutrophils % (Auto) 67 % (37-80); Nucleated Red Blood Cell % 0 /100 WBC (0); Platelet Count 136 Thou/mm3 (140-440); RDW Standard Deviation 40.5 fL (35.1-43.9); Red Blood Count 4.23 Miln/mm3 (4.50-5.90); White Blood Count 4.9 Thou/mm3 (3.8-10.6)
[2024-10-15 06:46] LABS: Alanine Aminotransferase 29 U/L (10-49); Albumin, Serum 3.9 gm/dL (3.4-4.8); Albumin/Globulin Ratio 2.1 (1.2-2.2); Alkaline Phosphatase 45 U/L (46-116); Anion Gap 10 (7-16); Aspartate Amino Transferase 44 U/L (0-34); BUN/Creatinine Ratio 17 Ratio (12-20); Bilirubin,Total 0.9 mg/dL (0.3-1.2); Blood Urea Nitrogen 17 mg/dL (9-23); Calcium (Corrected) 8.1 mg/dL (8.5-10.1); Carbon Dioxide 19.5 mMol/L (20.0-31.0); Chloride 106 mMol/L (98-107); Estimated Creatinine Clearance 90.6 mL/min (>60); Globulin 1.9 gm/dL (2.3-3.5); Glucose 97 mg/dL (74-106); Magnesium 1.9 mg/dL (1.6-2.6); Osmolality,Calculated 271 (275-295); Potassium 4.6 mMol/L (3.4-5.1); Sodium 135 mMol/L (136-145); Thyroid Stimulating Hormone 1.93 uIU/mL (0.55-4.78); Total Protein 5.8 gm/dL (5.7-8.2); eGFR > 60 See Note
[2024-10-15] MEDS: SODIUM CHLORIDE 0.9% 1000 ML 1,000 ML 80 ML IV (08:20)
[2024-10-15] MEDS: cefTRIAXone/D5w 1gm IV premix 50 ML IV (09:00)
[2024-10-15] MEDS: PANTOPRAZOLE 40 MG TABLET PO (09:00)
[2024-10-15] MEDS: HYDROCORTISONE 5 MG TABLET 20 MG PO (09:01)
[2024-10-15] MEDS: OSELTAMIVIR 75 MG CAPSULE PO (09:01)
[2024-10-15] MEDS: AZITHROMYCIN 250 MG TABLET 500 MG PO (09:01)
--- NOTE | 2024-10-15 09:14 | PC.SS ---
Follow up note: Pt is on IV antibiotic.
[2024-10-15] MEDS: ALBUTEROL/IPRATROPIUM (Duoneb) RT SOL 3 ML NEBU INH (12:14)
--- NOTE | 2024-10-15 14:07 | PD.RESPRO ---
Documentation for date of: 10/15/24 Exam Vital Signs Temp Pulse Resp BP Pulse Ox O2 Del Method 97.0 F 87 18 114/72 100 Room Air 10/15/24 11:59 10/15/24 12:15 10/15/24 12:15 10/15/24 11:59 10/15/24 12:15 10/15/24 11:59 Objective Labs 10/15/24 05:13 10/15/24 05:13 Labs: Laboratory Results - last 24 hr 10/14/24 10/14/24 10/15/24 15:37 16:56 05:13 WBC 4.9 RBC 4.23 L Hgb 13.0 L D Hct 37.3 L MCV 88 MCH 30.7 MCHC 34.9 RDW Std Deviation 40.5 Plt Count 136 L Neut % (Auto) 67 Lymph % (Auto) 22 Jenkins % (Auto) 10 Eos % (Auto) 0 Baso % (Auto) 0 Neut # (Auto) 3.3 Lymph # (Auto) 1.1 Jenkins # (Auto) 0.5 Eos # (Auto) 0.0 Baso # (Auto) 0.0 Immature Gran # (Auto) 0.03 H Absolute Nucleated RBC 0.00 Immature Gran % 1 H Nucleated RBC % 0 Sodium 135 L Potassium 4.6 D Chloride 106 Carbon Dioxide 19.5 L Anion Gap 10 BUN 17 Creatinine 1.0 D Estim Creat Clear Calc 90.6 eGFR > 60 BUN/Creatinine Ratio 17 Glucose 97 Calculated Osmolality 271 L Lactic Acid 1.2 Calcium 8.0 L D Corrected Calcium 8.1 L D Magnesium 1.9 Total Bilirubin 0.9 D AST 44 H ALT 29 Alkaline Phosphatase 45 L D Total Protein 5.8 Albumin 3.9 D Globulin 1.9 L Albumin/Globulin Ratio 2.1 TSH 1.93 Ur Collection Type Clean Catch Urine Color Yellow Urine Clarity Clear Urine pH 5.5 Ur Specific [place] 1.031 Urine Protein 1+ A Urine Glucose (UA) Negative Urine Ketones Trace Urine Blood Negative Urine Nitrite Negative Urine Bilirubin Negative Urine Urobilinogen (Auto) Negative Ur Leukocyte Esterase Negative Urine RBC 3 Urine WBC 3 Ur Squamous Epith Cells 0 Amorphous Crystals Present A Urine Bacteria None Hyaline Casts < 1 Quality Measures Quality Measures VTE therapy Assessment & Plan Assessment Current Active Medications: Generic Name Dose Route Start Last Admin Trade Name Freq PRN Reason Stop Dose Admin Acetaminophen 650 mg 10/14/24 15:00 Acetaminophen 325 Mg Tablet PO 11/13/24 14:59 Q6H PRN Fever >100.5 Acetaminophen 650 mg 10/14/24 15:00 10/15/24 05:44 Acetaminophen 325 Mg Tablet PO 11/13/24 14:59 650 mg Q6H PRN Administration PAIN SCALE 1-3 (mild Albuterol/Ipratropium 3 ml 10/14/24 15:47 10/15/24 12:14 Albuterol/Ipratropium (Duoneb) Rt Adwoa 3 Ml Nebu INH 11/13/24 15:46 3 ml Q6HRRT PRN Administration SHORTNESS OF BREATH OR WHEEZE Atorvastatin Calcium 80 mg 10/14/24 21:00 10/14/24 21:37 Atorvastatin Calcium 20 Mg Tablet PO 11/13/24 20:59 80 mg HS AL Administration Azithromycin 500 mg 10/15/24 09:00 10/15/24 09:01 Azithromycin 250 Mg Tablet PO 10/22/24 08:59 500 mg QDAY AL Administration Docusate Sodium 100 mg 10/15/24 09:00 10/15/24 09:14 Docusate Sod 100 Mg Capsule PO 11/14/24 08:59 Not Given QDAY AL Protocol Heparin Sodium (Porcine) 5,000 unit 10/14/24 22:00 10/15/24 05:43 Heparin Sod Inj 5000 Unit/Ml Vial SC 10/28/24 21:59 5,000 unit Q8HR AL Administration Hydrocortisone 20 mg 10/14/24 15:15 10/15/24 09:01 Hydrocortisone 5 Mg Tablet PO 10/16/24 15:14 20 mg QAM AL Administration Hydrocortisone 10 mg 10/14/24 21:00 10/14/24 21:37 Hydrocortisone 5 Mg Tablet PO 10/16/24 20:59 10 mg HS AL Administration Ceftriaxone Sodium/Dextrose 50 mls @ 100 mls/hr 10/14/24 15:06 10/15/24 09:00 Rocephin/D5w 1gm Iv Premix IV 10/21/24 15:05 100 mls/hr QDAY AL Administration Sodium Chloride 1,000 mls @ 80 mls/hr 10/14/24 17:34 10/15/24 08:20 Ns IV 11/13/24 17:33 80 mls/hr .[id number] AL Administration Levothyroxine Sodium 50 mcg 10/15/24 06:00 10/15/24 05:44 Levothyroxine Sodium 25 Mcg Tablet PO 11/14/24 05:59 50 mcg ACBR AL Administration Melatonin 3 mg 10/14/24 21:00 10/14/24 21:34 Melatonin 3 Mg Tablet PO 11/13/24 20:59 Not Given HS AL Ondansetron HCl 4 mg 10/14/24 15:00 Ondansetron Inj 2 Mg/Ml Inj 2 Ml IV 11/13/24 14:59 Q6H PRN NAUSEA OR VOMITING Protocol Oseltamivir Phosphate 75 mg 10/14/24 21:00 10/15/24 09:01 Oseltamivir 75 Mg Capsule PO 10/21/24 20:59 75 mg BID AL Administration Pantoprazole Sodium 40 mg 10/15/24 09:00 10/15/24 09:00 Pantoprazole 40 Mg Tablet PO 11/14/24 08:59 40 mg QDAY AL Administration
[2024-10-15 14:23] LABS: Cocci Serology, IgM Negative (Negative)
--- NOTE | 2024-10-15 15:47 | ESDS_ITS ---
<Statement entered by Irma Pena MD - 10/23/24 13:38> I reviewed above note and agree with findings and plans. I have also personally examined the patient with medicine team and went over assessment and plan with medical team including continuous improvement intern and resident physician. 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 He has a history of being treated with Nivolumab and Ipilimumab until 02/2024. He is being followed by Dr. Wright at the cancer center. Patient reports about 2 to 3 days ago patient started develop a cough and episodes of intermittent confusion, generalized weakness, vomiting, fever and watery diarrhea. During hospital stay patient is at baseline mentation. Was managed with IV antibiotics and Tamiflu for influenza with superimposed pneumonia with adequate response. Patient has history of adrenal insufficiency for which is steroid medication was resumed as instructed by international representative Dr. Hui. Hypothyroidism was managed by resuming patient's levothyroxine as taken at home. MARLA was managed with IV fluids. At this time patient is medically stable for discharge.Recommend continuing Tamiflu for 3 more days for treatment of influenza. Please follow-up with your primary care physician and oncologist within 1 week of discharge from hospital. Also recommend following up with international representative Dr. Hui regarding adjusting dose of hydrocortisone. In case of worsening symptoms, worsening shortness of breath, excessive cough or fevers, please return to the emergency room Problem list: #Sepsis-resolved #Influenza A #Right upper lobe pneumonia #History of dermal sarcoma stage IV # History of adrenal sufficiency #Elevated total bilirubin-resolved #Mildly elevated liver enzymes-resolved #Acute kidney injury-resolved #Hypertension #Hypothyroidism #Hyperlipidemia Case discussed with my attending Dr. Becky Springer MD PGY-1 Status at Discharge Functional status at discharge: wheelchair bound Overall status at discharge: patient is back to baseline Time Spent with Patient Time attestation: Total time spent providing and/or coordinating discharge services: Exam Vital Signs Temp Pulse Resp BP Pulse Ox O2 Del Method 97.0 F 87 18 114/72 100 Room Air 10/15/24 11:59 10/15/24 12:15 10/15/24 12:15 10/15/24 11:59 10/15/24 12:15 10/15/24 11:59 Narrative Exam Physical Exam GENERAL: NAD, AAOx3 HEENT: Moist mucosa. Eyes open, symmetrical, & clear CARDIO: Heart RRR, no obvious murmurs PULM: Coughing, bilateral wheezing GI: Abdomen soft, nondistended, no pain on palpation. BSx4 SKIN/MSK/EXT: Left BKA, no pain on palpation. Pedal pulses present B/L NEURO: AAOx3, no focal neuro deficits, able to move all 4 extremities Discharge Plan Plan Patient Disposition: HOME (Self Care) Patient condition on transfer: Stable Care Plan Goals: Recommend continuing Tamiflu for 3 more days for treatment of influenza. Please follow-up with your primary care physician and oncologist within 1 week of discharge from hospital. Also recommend following up with international representative Dr. Hui regarding adjusting dose of hydrocortisone. In case of worsening symptoms, worsening shortness of breath, excessive cough or fevers, please return to the emergency room Prescriptions/Referrals Prescriptions/Med Rec: New oseltamivir 75 mg Capsule 75 mg PO BID 3 Days Qty: 6 0RF Continued hydrocortisone 5 mg tablet 5 mg PO HS Patient Comments: TAKE 1 TABLET BY MOUTH EVERY 6 HOURS NEEDED cetirizine 10 mg tablet 10 mg PO QDAY Patient Comments: TAKE 1 TABLET BY MOUTH DAILY levothyroxine 50 mcg tablet 50 mcg PO QDAY hydrocortisone 10 mg Tablet 10 mg PO QDAY pantoprazole 40 mg Tablet,Delayed Release (Dr/Ec) 40 mg PO HS losartan 25 mg Tablet 50 mg PO QDAY Hold Instructions: Resume on 04/03/24. Discontinued amoxicillin-pot clavulanate 875-125 mg tablet 1 tab PO BID Patient Comments: TAKE 1 TABLET BY MOUTH TWICE DAILY Referrals: Ajith Khanna MD [Primary Care Provider] - Patient/Caregiver Discharge Instructions Print Language: French Stand Alone Forms: Тать[facility] Award Info., Patient Portal Info Letter Discharge Order Discharge Orders: Discharge (Routine); Ordered 10/15/24 Ordered By: Diaz Springer Quality Discharge Quality Measures VTE prophylaxis
[2024-10-16 15:16] LABS: Cocci Serology, IgG Negative (Negative)
== END 2024-10-15 16:44 | disposition home or self-care (01) | DRG 871 ==
LOC: SERX 14:33 → SERHOLD 15:43 → S3SX 18:40
PROVIDERS: Nurse Practitioner Primary Care; Student in an Organized Health Care Education/Training Program; Admitting Provider Internal Medicine; Emergency Provider Emergency Medicine; PCP Family Medicine; Visit Provider Student in an Organized Health Care Education/Training Program
DX: A41.89 Other specified sepsis (principal); J10.08 Influenza due to other identified influenza virus with other specified pneumonia; J15.69 Pneumonia due to other Gram-negative bacteria; N17.9 Acute kidney failure, unspecified; C78.00 Secondary malignant neoplasm of unspecified lung; E27.40 Unspecified adrenocortical insufficiency; C49.9 Malignant neoplasm of connective and soft tissue, unspecified; C77.4 Secondary and unspecified malignant neoplasm of inguinal and lower limb lymph nodes; C78.02 Secondary malignant neoplasm of left lung; C78.01 Secondary malignant neoplasm of right lung; K21.9 Gastro-esophageal reflux disease without esophagitis; R65.20 Severe sepsis without septic shock; E03.9 Hypothyroidism, unspecified; I10 Essential (primary) hypertension; E78.5 Hyperlipidemia, unspecified; Z92.21 Personal history of antineoplastic chemotherapy; Z89.512 Acquired absence of left leg below knee; Z90.49 Acquired absence of other specified parts of digestive tract; Z79.890 Hormone replacement therapy; Z79.899 Other long term (current) drug therapy
CPT/HCPCS: 36415; 70450; 71046; 80053; 81001; 83605; 83735; 84145; 84443; 85025; 86331; 86635; 87040; 87086; 87400; 87811; 93225; 94640; 96365; 96366; 96367; 99285; A9270; J0696; J1643; J2543; J3490; J7030; J7050

== ENCOUNTER 2024-10-21 08:08 | Outpatient (RCR) | payer MEDICARE, MEDICAID, SELFPAY ==
[2024-10-21 09:07] LABS: Basophils % (Auto) 1 % (0-2.5); Eosinophils # (Auto) 0.2 Thou/mm3 (0.0-0.5); Eosinophils % (Auto) 2 % (0-10); Hematocrit 40.4 % (41.0-53.0); Hemoglobin 13.9 g/dL (13.5-16.0); Immature Granulocytes % (Auto) 2 % (0-0); Immature Granulocytes Auto 0.15 Thou/mm3 (0.00-0.00); Lymphocytes # (Auto) 3.1 Thou/mm3 (1.0-4.8); Lymphocytes % (Auto) 48 % (10-50); Mean Corpuscular HGB Conc 34.4 g/dl (31.0-37.0); Mean Corpuscular Hemoglobin 29.9 pg (25.0-35.0); Mean Corpuscular Volume 87 fL (80-100); Monocytes # (Auto) 0.4 Thou/mm3 (0.0-0.8); Monocytes % (Auto) 6 % (0-12); Neutrophils # (Auto) 2.7 Thou/mm3 (1.8-7.7); Neutrophils % (Auto) 41 % (37-80); Nucleated Red Blood Cell % 0 /100 WBC (0); Platelet Count 234 Thou/mm3 (140-440); Red Blood Count 4.65 Miln/mm3 (4.50-5.90); White Blood Count 6.5 Thou/mm3 (3.8-10.6)
[2024-10-21 09:27] LABS: Follicle Stimulating Hormone 12.45 mIU/mL (See Note)
[2024-10-21 09:28] LABS: Free T3 1.6 pg/mL (2.3-4.2)
[2024-10-21 09:29] LABS: Alanine Aminotransferase 31 U/L (10-49); Albumin, Serum 4.2 gm/dL (3.4-4.8); Albumin/Globulin Ratio 1.9 (1.2-2.2); Alkaline Phosphatase 52 U/L (46-116); Anion Gap 7 (7-16); Aspartate Amino Transferase 27 U/L (0-34); BUN/Creatinine Ratio 16 Ratio (12-20); Bilirubin,Total 1.1 mg/dL (0.3-1.2); Blood Urea Nitrogen 16 mg/dL (9-23); Calcium 8.7 mg/dL (8.3-10.6); Calcium (Corrected) 8.7 mg/dL (8.5-10.1); Carbon Dioxide 25.6 mMol/L (20.0-31.0); Chloride 106 mMol/L (98-107); Free T4 (Free Thyroxine) 0.95 ng/dL (0.89-1.76); Globulin 2.2 gm/dL (2.3-3.5); Glucose 88 mg/dL (74-106); Osmolality,Calculated 277 (275-295); Potassium 3.5 mMol/L (3.4-5.1); Sodium 139 mMol/L (136-145); Thyroid Stimulating Hormone 8.94 uIU/mL (0.55-4.78); Total Protein 6.4 gm/dL (5.7-8.2); eGFR > 60 See Note
[2024-10-26 07:07] LABS: ACTH, Plasma* <5 pg/mL (6-50)
[2024-10-28 06:58] LABS: Luteinizing Hormone* 5.5 mIU/mL (1.6-15.2)
[2024-11-01 06:44] LABS: Cortisol,total,LC/MS/MS* <1.0 mcg/dL; Testosterone,Total* 329 ng/dL (250-1100)
== END 2024-10-22 23:59 | disposition home or self-care (01) ==
LOC: SCTC 08:08
PROVIDERS: PCP Family Medicine; Referring Provider Family Medicine; Visit Provider Internal Medicine Hematology & Oncology
DX: C49.22 Malignant neoplasm of connective and soft tissue of left lower limb, including hip (principal)
CPT/HCPCS: 36591; 80053; 82024; 82533; 83001; 83002; 84403; 84439; 84443; 84481; 85025; A4216; J1642

== ENCOUNTER 2024-10-28 10:08 | Outpatient (RCR) | payer MEDICARE, MEDICAID, SELFPAY ==
--- NOTE | 2024-10-31 22:03 | CTCFLWUP_ITS ---
Patient: NICOLETTE BELL : 1960 Page 10 of 11 FOLLOW UP NOTE DATE OF SERVICE: 10/28/2024 NAME: NICOLETTE BELL ACCOUNT: [id number] : 1960 AGE: 64 INTERVAL HISTORY: Patient today seen with his . He is doing well and have no complaints. His energy level have returned. 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 He was having pain in the left lower extremity for last 20 years. Recently started noticing masses which were ulcerating. he had one of the large ulcerating mass biopsied by Dr. Davion Bravo. 10/23/2022: Left lower leg mass excision? 10/31/2022: CT scan of the chest abdomen with IV contrast? 11/05/2022: PET/CT scan 11/07/2022: Ultrasound-guided fine-needle aspiration of the left inguinal lymph node? 11/22/2022: Patient underwent left knee amputation 01/08/2023: CT scan of the chest, abdomen and pelvis with contrast? 01/23/2023: This was discussed at the [facility] sarcoma tumor board 01/01/2024: CT scan of the chest abdomen and pelvis? 01/08/2024: Dr. Correa of [facility] saw Mr. 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 He is doing well and have no complaints. His energy level have returned. 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 He was having pain in the left lower extremity for last 20 years. Recently started noticing masses which were ulcerating. he had one of the large ulcerating mass biopsied by Dr. Davion Bravo. 10/23/2022: Left lower leg mass excision? 10/31/2022: CT scan of the chest abdomen with IV contrast? 11/05/2022: PET/CT scan 11/07/2022: Ultrasound-guided fine-needle aspiration of the left inguinal lymph node? 11/22/2022: Patient underwent left knee amputation 01/08/2023: CT scan of the chest, abdomen and pelvis with contrast? 01/23/2023: This was discussed at the [facility] sarcoma tumor board 01/01/2024: CT scan of the chest abdomen and pelvis? 01/08/2024: Dr. Correa of [facility] saw Mr. Bell and recommended immune-based therapy with ipilimumab and nivolumab DIAGNOSIS: Stage IV pleomorphic dermal sarcoma, grade 3. TMB 9 mutations per megabyte S/p 4 cycles of Gemzar and Taxotere in the adjuvant setting (04/22/2023 - 08/06/2023) hypertension DATE OF DIAGNOSIS: 10/23/2022 STAGE/TNM: sarcoma TREATMENT HISTORY: Care?Plan Start?Date Cycle Day Intent VENOfer?200mg?IV?wkly?for?10?weeks 11/19/2022 1 70 Palliative Gemcitabine?Taxotere 04/22/2023 1 21 Palliative Nivo?3?Ipi?1?sarcoma?[place]?[id number]?Part?1 01/15/2024 1 21 Palliative Nivo?3?Ipi?1?sarcoma?[place]?[id number]?Part?2 04/05/2024 1 14 Palliative HISTORY OF PRESENT ILLNESS: OTHER MEDICAL HISTORY/CONDITIONS: HTN Hypertension Anemia Chronic Regional pain syndrome- left leg Appendectomy - age 26 Left knee surgery - 1996 FAMILY HISTORY: Mother:?Breast?-?dx?age?70 SOCIAL HISTORY: 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 Tobacco?Use:?Denies ETOH?Use:?Denies Drug?Note:?Denies Social?History?Note:?Lives?with? MEDICATIONS: 1. cetirizine - 10 mg 1 Capsule Daily 2. hydrocortisone - 10 mg 1 tab As directed 3. levothyroxine - 75 mcg 1 Capsule Daily 4. losartan - 50 mg 1 tab Daily 5. pantoprazole - 40 mg 1 tab Daily 6. Vitamin C - 500 mg 1 tab Three times a day Medications Last Reconciled by Brittany Cedillo MA on 10/28/2024 ALLERGIES: tetracycline REVIEW OF SYSTEMS: A complete 14-point review of systems was performed and is negative except as noted in interval history. PHYSICAL EXAMINATION: VITAL SIGNS: Temperature?98.9, B/P?108/63, Oxygen?Saturation?98% Weight?218?lbs (Change?since?10/21/24:?-2.6?lbs) PAIN: 0 - No pain ECOG Performance Status: 0 - Asymptomatic and fully active EYE: Conjunctivae is white MOUTH: Oral cavity is moist CHEST: Clear to auscultation. No wheezes or rales audible. CARDIAC: Rhythm regular, no murmurs or gallops present. ABDOMEN: Soft. No hepatomegaly. No splenomegaly. EXTREMITIES: Patient has left knee amputation. He has dressing on the surgical wound which is open at this time. Wound care is helping with the healing. LABORATORY DATA: I have personally reviewed and interpreted each of the patient?s relevant lab tests, abnormal findings are below: Date 10/21/24 ??GLUCOSE,RANDOM?(mg/dL) 88 ??BLOOD?UREA?NITROGEN?(mg/dL) 16 ??CREATININE?(mg/dL) 1.00 ??SODIUM?(mmol/L) 139 ??POTASSIUM?(mmol/L) 3.5 ??CHLORIDE?(mmol/L) 106 ??CrCl?(CandG)?(ml/min) 87.14 ??AST/SGOT?(Unit/L) 27 ??ALT/SGPT?(Unit/L) 31 ??ALKALINE?PHOSPHATASE?(Unit/L) 52 ??BILIRUBIN,?TOTAL?(mg/dL) 1.1 ??PROTEIN?TOTAL?(gm/dl) 6.4 ??ALBUMIN,?SERUM?(gm/dl) 4.2 ??GLOBULIN?(gm/dl) 2.2?L ??ALBUMIN/GLOBULIN?RATIO 1.9 ??CALCIUM,?SERUM?(mg/dL) 8.7 ??CALCIUM?SERUM?(CORRECTED)?(mg/dL) 8.7 ASSESSMENT/PLAN: #1 recent hospitalization secondary to H. influenza Patient was recently treated with influenza Patient's PET CT scan is scheduled at this [facility] Patient is on maintenance dose of prednisone Advised patient to follow-up with personnel administrator to see if patient can be tapered off prednisone Patient's labs show elevated TSH so patient's pituitary function is then Patient's ACTH was low likely from high doses of prednisone I will like patient to follow-up with personnel administrator more closely #2 sarcoma Reviewed patient's records from [facility] Initially treated with gem cis followed by resection Patient received nivolumab and ipilimumab when he had recurrence Patient developed severe thyroiditis and hypophysitis Patient was seen by personnel administrator and requested to do TPO TSI and TG antibodies Patient also on prednisone Was advised to check a.m. ACTH and cortisol Advised was if cortisol less than 14 then consider stimulatory test If undetectable then repeat a.m. cortisol in 3 months Can repeat testosterone LH FSH as these labs help to differentiate suppression from illness and pituitary dysfunction Ordered labs CBC CMP TSH T4 RETURN TO CLINIC: 3 to 4 months BILLING AND COMPLIANCE: I reviewed external records from providers outside my specialty as summarized above. I spent a total of 50 minutes on this patient?s care on the day of their visit excluding time spent related to any billed procedures. This time includes time spent with the patient as well as time spent documenting in the medical record, reviewing patients records and tests, obtaining history, placing orders, communicating with other healthcare professionals, counseling the patient, family or caregiver, and/or care coordination for the diagnoses above. Electronically Signed by: Matt Wright MD T: 10:01 PM CC: Kirt?Yue? PCP: Ajith Cade Referring: Ajith Cade This document was completed utilizing speech recognition software. Grammatical errors, random word insertions, pronoun errors, and incomplete sentences are an occasional consequence of this system due to software limitations, ambient noise, and hardware issues. Any formal questions or concerns about the content, text or information contained within the body of this dictation should be directly addressed to the provider for clarification.
== END 2024-11-19 23:59 | disposition home or self-care (01) ==
LOC: SCTC 10:08
PROVIDERS: PCP Family Medicine; Referring Provider Family Medicine; Visit Provider Internal Medicine Hematology & Oncology
DX: C49.22 Malignant neoplasm of connective and soft tissue of left lower limb, including hip (principal); R94.6 Abnormal results of thyroid function studies
CPT/HCPCS: 99212; G0463

== ENCOUNTER → 2024-12-01 | Outpatient (CLI) | payer MEDICARE, MEDICAID, SELFPAY ==
--- NOTE | 2024-12-01 12:30 | XR_ITS ---
Examination: Bone scan whole body, radioisotope Date and time of exam: December 01, 2024 1144 hrs. Indications: Diagnosis No arthritic sarcoma left lower extremity pulses lower leg amputation November 2022, status post chemotherapy and immunotherapy, staging Technique: Study has been performed with intravenous administration of 23.3 mci 99M technetium MDP. Anterior, posterior whole body images are obtained. Images have been obtained including the lower extremities. Findings: Subtle increased vascularity deviation lower anterior right rib Mild increased uptake right knee Impression: Positive bone scan but nonspecific Recommend right rib series follow-up
== END | disposition home or self-care (01) ==
LOC: SNUC 12-02 08:51
PROVIDERS: PCP Family Medicine; Referring Provider Internal Medicine Hematology & Oncology; Visit Provider Internal Medicine Hematology & Oncology
DX: R93.7 Abnormal findings on diagnostic imaging of other parts of musculoskeletal system (principal); C90.01 Multiple myeloma in remission
CPT/HCPCS: 78306; A9503

== ENCOUNTER 2024-12-06 11:09 | Outpatient (RCR) | payer MEDICARE, MEDICAID, SELFPAY ==
[2024-11-29 09:31] LABS: Basophils % (Auto) 0 % (0-2.5); Eosinophils # (Auto) 0.2 Thou/mm3 (0.0-0.5); Eosinophils % (Auto) 3 % (0-10); Hematocrit 40.6 % (41.0-53.0); Hemoglobin 13.9 g/dL (13.5-16.0); Immature Granulocytes % (Auto) 1 % (0-0); Immature Granulocytes Auto 0.03 Thou/mm3 (0.00-0.00); Lymphocytes # (Auto) 2.9 Thou/mm3 (1.0-4.8); Lymphocytes % (Auto) 52 % (10-50); Mean Corpuscular HGB Conc 34.2 g/dl (31.0-37.0); Mean Corpuscular Hemoglobin 30.4 pg (25.0-35.0); Mean Corpuscular Volume 89 fL (80-100); Monocytes # (Auto) 0.5 Thou/mm3 (0.0-0.8); Monocytes % (Auto) 8 % (0-12); Neutrophils # (Auto) 2.1 Thou/mm3 (1.8-7.7); Neutrophils % (Auto) 37 % (37-80); Nucleated Red Blood Cell % 0 /100 WBC (0); Platelet Count 198 Thou/mm3 (140-440); RDW Standard Deviation 44.1 fL (35.1-43.9); Red Blood Count 4.57 Miln/mm3 (4.50-5.90); White Blood Count 5.7 Thou/mm3 (3.8-10.6)
[2024-11-29 09:54] LABS: Vitamin D 25 Hydroxy Total 44.3 ng/mL (7.3-40.2)
[2024-11-29 10:02] LABS: Free T4 (Free Thyroxine) 1.22 ng/dL (0.89-1.76); Magnesium 1.9 mg/dL (1.6-2.6); Thyroid Stimulating Hormone 4.88 uIU/mL (0.55-4.78)
[2024-11-29 10:14] LABS: Alanine Aminotransferase 9 U/L (10-49); Albumin, Serum 4.1 gm/dL (3.4-4.8); Alkaline Phosphatase 54 U/L (46-116); Anion Gap 7 (7-16); Aspartate Amino Transferase 17 U/L (0-34); BUN/Creatinine Ratio 18 Ratio (12-20); Bilirubin,Total 1.1 mg/dL (0.3-1.2); Blood Urea Nitrogen 20 mg/dL (9-23); Calcium 8.9 mg/dL (8.3-10.6); Calcium (Corrected) 8.9 mg/dL (8.5-10.1); Carbon Dioxide 24.6 mMol/L (20.0-31.0); Chloride 108 mMol/L (98-107); Creatinine (Component) 1.1 mg/dL (0.6-1.3); Globulin 2.1 gm/dL (2.3-3.5); Glucose 88 mg/dL (74-106); Osmolality,Calculated 281 (275-295); Potassium 3.5 mMol/L (3.4-5.1); Sodium 140 mMol/L (136-145); Total Protein 6.2 gm/dL (5.7-8.2); eGFR > 60 See Note
[2024-12-02 06:53] LABS: ACTH, Plasma* <5 pg/mL (6-50)
[2024-12-06 07:07] LABS: Gamma Glutamyl Transpeptidase* 21 U/L (3-70)
[2024-12-07 06:41] LABS: Cortisol,total,LC/MS/MS* 19.2 mcg/dL; T3,Total* 81 ng/dL (76-181)
--- NOTE | 2025-01-09 17:54 | CTCFLWUP_ITS ---
Patient: NICOLETTE BELL : 1960 Page 10 of 12 FOLLOW UP NOTE DATE OF SERVICE: 12/06/2024 NAME: NICOLETTE BELL ACCOUNT: [id number] : 1960 AGE: 65 INTERVAL HISTORY: Patient today seen with his . He is doing well and have no complaints. His energy level have returned. He has good appetite and not losing any weight He was discharged from the hospital after being treated for Influenza . he is doing well. 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 He was having pain in the left lower extremity for last 20 years. Recently started noticing masses which were ulcerating. he had one of the large ulcerating mass biopsied by Dr. Davion Bravo. 10/23/2022: Left lower leg mass excision? 10/31/2022: CT scan of the chest abdomen with IV contrast? 11/05/2022: PET/CT scan 11/07/2022: Ultrasound-guided fine-needle aspiration of the left inguinal lymph node? 11/22/2022: Patient underwent left knee amputation 01/08/2023: CT scan of the chest, abdomen and pelvis with contrast? 01/23/2023: This was discussed at the [facility] sarcoma tumor board 01/01/2024: CT scan of the chest abdomen and pelvis? 01/08/2024: Dr. Correa of [facility] saw Mr. Bell and recommended immune-based therapy with ipilimumab and nivolumab ONCOLOGY HISTORY:?[facility] Hx? 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 He is doing well and have no complaints. His energy level have returned. 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 He was having pain in the left lower extremity for last 20 years. Recently started noticing masses which were ulcerating. he had one of the large ulcerating mass biopsied by Dr. Davion Barvo. 10/23/2022: Left lower leg mass excision? 10/31/2022: CT scan of the chest abdomen with IV contrast? 11/05/2022: PET/CT scan 11/07/2022: Ultrasound-guided fine-needle aspiration of the left inguinal lymph node? 11/22/2022: Patient underwent left knee amputation 01/08/2023: CT scan of the chest, abdomen and pelvis with contrast? 01/23/2023: This was discussed at the [facility] sarcoma tumor board 01/01/2024: CT scan of the chest abdomen and pelvis? 01/08/2024: Dr. Correa of [facility] saw Mr. Bell and recommended immune-based therapy with ipilimumab and nivolumab DIAGNOSIS: Stage IV pleomorphic dermal sarcoma, grade 3. TMB 9 mutations per megabyte S/p 4 cycles of Gemzar and Taxotere in the adjuvant setting (04/22/2023 - 08/06/2023) hypertension DATE OF DIAGNOSIS: 10/23/2022 STAGE/TNM: sarcoma TREATMENT HISTORY: Care?Plan Start?Date Cycle Day Intent VENOfer?200mg?IV?wkly?for?10?weeks 11/19/2022 1 70 Palliative Gemcitabine?Taxotere 04/22/2023 1 21 Palliative Nivo?3?Ipi?1?sarcoma?[place]?[id number]?Part?1 01/15/2024 1 21 Palliative Nivo?3?Ipi?1?sarcoma?[place]?[id number]?Part?2 04/05/2024 1 14 Palliative HISTORY OF PRESENT ILLNESS: OTHER MEDICAL HISTORY/CONDITIONS: HTN Hypertension Anemia Chronic Regional pain syndrome- left leg Appendectomy - age 26 Left knee surgery - 1996 FAMILY HISTORY: Mother:?Breast?-?dx?age?70 SOCIAL HISTORY: 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 Tobacco?Use:?Denies ETOH?Use:?Denies Drug?Note:?Denies Social?History?Note:?Lives?with? MEDICATIONS: 1. cetirizine - 10 mg 1 Capsule Daily 2. hydrocortisone - 10 mg 1 tab As directed 3. hydrocortisone - 5 mg tab As directed 4. levothyroxine - 75 mcg 1 Capsule Daily 5. Lipitor - 40 mg 1 tab Daily 6. losartan - 50 mg 1 tab Daily 7. pantoprazole - 40 mg 1 tab Daily 8. Vitamin C - 500 mg 1 tab Three times a day?[place] Meds? Medications Last Reconciled by Homa Aguilera MA on 12/30/2024 ALLERGIES: tetracycline REVIEW OF SYSTEMS: A complete 14-point review of systems was performed and is negative except as noted in interval history. PHYSICAL EXAMINATION:?[facility] PE? VITAL SIGNS: Temperature?98.2, B/P?118/76, Oxygen?Saturation?96% Weight?220?lbs (Change?since?11/29/24:?-0.8?lbs) PAIN: 0 - No pain EYE: Conjunctivae is white MOUTH: Oral cavity is moist CHEST: Clear to auscultation. No wheezes or rales audible. CARDIAC: Rhythm regular, no murmurs or gallops present. ABDOMEN: Soft. No hepatomegaly. No splenomegaly. EXTREMITIES: Patient has left knee amputation. He has dressing on the surgical wound which is open at this time. Wound care is helping with the healing. LABORATORY DATA: I have personally reviewed and interpreted each of the patient?s relevant lab tests, abnormal findings are below: Date 10/21/24 11/29/24 ??WHITE?BLOOD?COUNT?(Thou/mm3) ? 5.7 ??RED?BLOOD?COUNT?(Miln/mm3) ? 4.57 ??HEMOGLOBIN?(gm/dl) ? 13.9 ??HEMATOCRIT?(%) ? 40.6?L ??PLATELET?COUNT?(Thou/mm3) ? 198 ??NEUTROPHILS?%,?AUTO?(%) ? 37 ??LYMPH?%,?AUTO?(%) ? 52?H ??NEUTROPHILS,?AUTO?(Thou/mm3) ? 2.1 ??GLUCOSE,RANDOM?(mg/dL) 88 88 ??BLOOD?UREA?NITROGEN?(mg/dL) 16 20 ??CREATININE?(mg/dL) 1.00 1.10 ??SODIUM?(mmol/L) 139 140 ??POTASSIUM?(mmol/L) 3.5 3.5 ??CHLORIDE?(mmol/L) 106 108?H ??CrCl?(CandG)?(ml/min) 87.14 79.26 ??AST/SGOT?(Unit/L) 27 17 ??ALT/SGPT?(Unit/L) 31 9?L ??ALKALINE?PHOSPHATASE?(Unit/L) 52 54 ??BILIRUBIN,?TOTAL?(mg/dL) 1.1 1.1 ??PROTEIN?TOTAL?(gm/dl) 6.4 6.2 ??ALBUMIN,?SERUM?(gm/dl) 4.2 4.1 ??GLOBULIN?(gm/dl) 2.2?L 2.1?L ??ALBUMIN/GLOBULIN?RATIO 1.9 2.0 ??CALCIUM,?SERUM?(mg/dL) 8.7 8.9 ??CALCIUM?SERUM?(CORRECTED)?(mg/dL) 8.7 8.9 ??MAGNESIUM?(mg/dL) ? 1.9 ASSESSMENT/PLAN:?Clara Wright Assessment/Plan? #1 recent hospitalization secondary to H. influenza Patient was recently treated with influenza Patient's PET CT scan is scheduled at this [facility] Patient is on maintenance dose of prednisone Advised patient to follow-up with on call pharmacy technician to see if patient can be tapered off prednisone Patient's labs show elevated TSH so patient's pituitary function is then Patient's ACTH was low likely from high doses of prednisone I will like patient to follow-up with on call pharmacy technician more closely #2 sarcoma Reviewed patient's records from [facility] Initially treated with gem cis followed by resection Patient received nivolumab and ipilimumab when he had recurrence Patient developed severe thyroiditis and hypophysitis Can try nivo in future on recurrence Will refer to sarcoma center for second opinion and trial option. 3. osteopenia Patient have low bone desity Will start on zometa Patient is high risk for fracture as also on chronic steroids ORDERS: Order # Description [id number] Thyroid Stimulating Hormone + Comprehensive Metabolic Panel + CBC with Auto Diff + Thyroxine, Free [id number] Thyroid Stimulating Hormone + Comprehensive Metabolic Panel + CBC with Auto Diff + Thyroxine, Free [id number] Thyroid Stimulating Hormone + Comprehensive Metabolic Panel + CBC with Auto Diff + Thyroxine, Free [id number] Thyroid Stimulating Hormone + Comprehensive Metabolic Panel + CBC with Auto Diff + Thyroxine, Free [id number] Thyroid Stimulating Hormone + Comprehensive Metabolic Panel + CBC with Auto Diff + Thyroxine, Free [id number] Thyroid Stimulating Hormone + Comprehensive Metabolic Panel + CBC with Auto Diff + Thyroxine, Free RETURN TO CLINIC: BILLING AND COMPLIANCE: I reviewed external records from providers outside my specialty as summarized above. I spent a total of 50 minutes on this patient?s care on the day of their visit excluding time spent related to any billed procedures. This time includes time spent with the patient as well as time spent documenting in the medical record, reviewing patients records and tests, obtaining history, placing orders, communicating with other healthcare professionals, counseling the patient, family or caregiver, and/or care coordination for the diagnoses above. Electronically Signed by: Matt Wright MD T: 5:52 PM CC: Kirt?DYANA Turner PCP: Ajith Khanna Referring: Ajith Cade This document was completed utilizing speech recognition software. Grammatical errors, random word insertions, pronoun errors, and incomplete sentences are an occasional consequence of this system due to software limitations, ambient noise, and hardware issues. Any formal questions or concerns about the content, text or information contained within the body of this dictation should be directly addressed to the provider for clarification.
== END 2024-12-20 23:59 | disposition home or self-care (01) ==
LOC: SCTC 11:09
PROVIDERS: PCP Family Medicine; Referring Provider Family Medicine; Visit Provider Internal Medicine Hematology & Oncology
DX: C49.22 Malignant neoplasm of connective and soft tissue of left lower limb, including hip (principal); R94.6 Abnormal results of thyroid function studies; M85.80 Other specified disorders of bone density and structure, unspecified site
CPT/HCPCS: 36591; 80053; 82024; 82306; 82533; 82977; 83735; 84439; 84443; 84480; 85025; 99212; J1642; G0463

== ENCOUNTER → 2024-12-07 | Outpatient (CLI) | payer MEDICARE, MEDICAID, SELFPAY ==
--- NOTE | 2024-12-07 14:10 | XR_ITS ---
Examination: Bone densitometry Date and time of exam:December 07, 2024 1428 hours INDICATIONS: Patient is taking steroids for immunodeficiency disease 7 months, diagnosis malignant neoplasm connective and soft tissue Technique: Lumbar spine and hip total bone mineralization values of an calculated. Peak reference and age match control results have been displayed. Findings: Lumbar spine total bone mineralization is0.912 gm/cm2. This is 1.6 standard deviations below peak reference. This is 0.9 standard deviations below age-matched controls. Hip total bone mineralization is 0.531 gm/cm2 This is 3.3 standard deviations below peak reference. This is 2.8 standard deviations below age-matched controls Impression: There is osteopenia based on lumbar spine measurements. There is osteoporosis based on hip measurements
== END | disposition home or self-care (01) ==
LOC: CDIM 13:44
PROVIDERS: PCP Family Medicine; Referring Provider Internal Medicine Hematology & Oncology; Visit Provider Internal Medicine Hematology & Oncology
DX: M85.88 Other specified disorders of bone density and structure, other site (principal); M81.0 Age-related osteoporosis without current pathological fracture
CPT/HCPCS: 77080

== ENCOUNTER 2024-12-30 11:37 | Outpatient (RCR) | payer MEDICARE, MEDICAID, SELFPAY ==
--- NOTE | 2025-01-18 01:35 | CTCFLWUP_ITS ---
Patient: NICOLETTE BELL : 1960 Page 2 of 3 FOLLOW UP NOTE DATE OF SERVICE: 12/30/2024 NAME: NICOLETTE BELL ACCOUNT: [id number] : 1960 AGE: 65 INTERVAL HISTORY: Patient today seen with his . He is doing well and have no complaints. His energy level have returned. He has good appetite and not losing any weight. Patient's immunotherapy has been held since having very severe allergic reaction and immune hyper immune response to immunotherapy. Patient is still to see sarcoma specialist Dr. 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 He was having pain in the left lower extremity for last 20 years. Recently started noticing masses which were ulcerating. he had one of the large ulcerating mass biopsied by Dr. Davion Bravo. 10/23/2022: Left lower leg mass excision? 10/31/2022: CT scan of the chest abdomen with IV contrast? 11/05/2022: PET/CT scan 11/07/2022: Ultrasound-guided fine-needle aspiration of the left inguinal lymph node? 11/22/2022: Patient underwent left knee amputation 01/08/2023: CT scan of the chest, abdomen and pelvis with contrast? 01/23/2023: This was discussed at the [facility] sarcoma tumor board 01/01/2024: CT scan of the chest abdomen and pelvis? 01/08/2024: Dr. Correa of [facility] saw Mr. 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 He is doing well and have no complaints. His energy level have returned. 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 He was having pain in the left lower extremity for last 20 years. Recently started noticing masses which were ulcerating. he had one of the large ulcerating mass biopsied by Dr. Davion Bravo. 10/23/2022: Left lower leg mass excision? 10/31/2022: CT scan of the chest abdomen with IV contrast? 11/05/2022: PET/CT scan 11/07/2022: Ultrasound-guided fine-needle aspiration of the left inguinal lymph node? 11/22/2022: Patient underwent left knee amputation 01/08/2023: CT scan of the chest, abdomen and pelvis with contrast? 01/23/2023: This was discussed at the [facility] sarcoma tumor board 01/01/2024: CT scan of the chest abdomen and pelvis? 01/08/2024: Dr. Correa of [facility] saw Mr. Bell and recommended immune-based therapy with ipilimumab and nivolumab DIAGNOSIS: Stage IV pleomorphic dermal sarcoma, grade 3. TMB 9 mutations per megabyte S/p 4 cycles of Gemzar and Taxotere in the adjuvant setting (04/22/2023 - 08/06/2023) hypertension DATE OF DIAGNOSIS: 10/23/2022 STAGE/TNM: sarcoma TREATMENT HISTORY: Care?Plan Start?Date Cycle Day Intent VENOfer?200mg?IV?wkly?for?10?weeks 11/19/2022 1 70 Palliative Gemcitabine?Taxotere 04/22/2023 1 21 Palliative Nivo?3?Ipi?1?sarcoma?[place]?[id number]?Part?1 01/15/2024 1 21 Palliative Nivo?3?Ipi?1?sarcoma?[place]er?[id number]?Part?2 04/05/2024 1 14 Palliative HISTORY OF PRESENT ILLNESS: OTHER MEDICAL HISTORY/CONDITIONS: HTN Hypertension Anemia Chronic Regional pain syndrome- left leg Appendectomy - age 26 Left knee surgery - 1996 FAMILY HISTORY: Mother:?Breast?-?dx?age?70 SOCIAL HISTORY: 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 Tobacco?Use:?Denies ETOH?Use:?Denies Drug?Note:?Denies Social?History?Note:?Lives?with? MEDICATIONS: 1. cetirizine - 10 mg 1 Capsule Daily 2. hydrocortisone - 10 mg 1 tab As directed 3. hydrocortisone - 5 mg tab As directed 4. levothyroxine - 75 mcg 1 Capsule Daily 5. Lipitor - 40 mg 1 tab Daily 6. losartan - 50 mg 1 tab Daily 7. pantoprazole - 40 mg 1 tab Daily 8. Vitamin C - 500 mg 1 tab Three times a day Medications Last Reconciled by Homa Aguilera MA on 12/30/2024 ALLERGIES: tetracycline REVIEW OF SYSTEMS: A complete 14-point review of systems was performed and is negative except as noted in interval history. PHYSICAL EXAMINATION: VITAL SIGNS: Temperature?98.2, B/P?127/82, Oxygen?Saturation?98% Weight?228?lbs (Change?since?12/06/24:?8?lbs) PAIN: 0 - No pain ECOG Performance Status: 0 - Asymptomatic and fully active EYE: Conjunctivae is white MOUTH: Oral cavity is moist CHEST: Clear to auscultation. No wheezes or rales audible. CARDIAC: Rhythm regular, no murmurs or gallops present. ABDOMEN: Soft. No hepatomegaly. No splenomegaly. EXTREMITIES: Patient has left knee amputation. He has dressing on the surgical wound which is open at this time. Wound care is helping with the healing. LABORATORY DATA: I have personally reviewed and interpreted each of the patient?s relevant lab tests, abnormal findings are below: Date 10/21/24 11/29/24 ??WHITE?BLOOD?COUNT?(Thou/mm3) ? 5.7 ??RED?BLOOD?COUNT?(Miln/mm3) ? 4.57 ??HEMOGLOBIN?(gm/dl) ? 13.9 ??HEMATOCRIT?(%) ? 40.6?L ??PLATELET?COUNT?(Thou/mm3) ? 198 ??NEUTROPHILS?%,?AUTO?(%) ? 37 ??LYMPH?%,?AUTO?(%) ? 52?H ??NEUTROPHILS,?AUTO?(Thou/mm3) ? 2.1 ??GLUCOSE,RANDOM?(mg/dL) 88 88 ??BLOOD?UREA?NITROGEN?(mg/dL) 16 20 ??CREATININE?(mg/dL) 1.00 1.10 ??SODIUM?(mmol/L) 139 140 ??POTASSIUM?(mmol/L) 3.5 3.5 ??CHLORIDE?(mmol/L) 106 108?H ??CrCl?(CandG)?(ml/min) 87.14 79.26 ??AST/SGOT?(Unit/L) 27 17 ??ALT/SGPT?(Unit/L) 31 9?L ??ALKALINE?PHOSPHATASE?(Unit/L) 52 54 ??BILIRUBIN,?TOTAL?(mg/dL) 1.1 1.1 ??PROTEIN?TOTAL?(gm/dl) 6.4 6.2 ??ALBUMIN,?SERUM?(gm/dl) 4.2 4.1 ??GLOBULIN?(gm/dl) 2.2?L 2.1?L ??ALBUMIN/GLOBULIN?RATIO 1.9 2.0 ??CALCIUM,?SERUM?(mg/dL) 8.7 8.9 ??CALCIUM?SERUM?(CORRECTED)?(mg/dL) 8.7 8.9 ??MAGNESIUM?(mg/dL) ? 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 Bell last scan has been stable #2 sarcoma Reviewed patient's records from [facility] Initially treated with gem cis followed by resection Patient received nivolumab and ipilimumab when he had recurrence Patient developed severe thyroiditis and hypophysitis Can try nivo in future on recurrence Will refer to sarcoma center for second opinion and trial option. 3. osteopenia Patient have low bone desity Will start on zometa Patient is high risk for fracture as also on chronic steroids ORDERS: Order # Description [id number] Thyroid Stimulating Hormone + Comprehensive Metabolic Panel + CBC with Auto Diff + Thyroxine, Free [id number] Thyroid Stimulating Hormone + Comprehensive Metabolic Panel + CBC with Auto Diff + Thyroxine, Free [id number] Thyroid Stimulating Hormone + Comprehensive Metabolic Panel + CBC with Auto Diff + Thyroxine, Free [id number] Thyroid Stimulating Hormone + Comprehensive Metabolic Panel + CBC with Auto Diff + Thyroxine, Free [id number] Thyroid Stimulating Hormone + Comprehensive Metabolic Panel + CBC with Auto Diff + Thyroxine, Free RETURN TO CLINIC: BILLING AND COMPLIANCE: I reviewed external records from providers outside my specialty as summarized above. I spent a total of 50 minutes on this patient?s care on the day of their visit excluding time spent related to any billed procedures. This time includes time spent with the patient as well as time spent documenting in the medical record, reviewing patients records and tests, obtaining history, placing orders, communicating with other healthcare professionals, counseling the patient, family or caregiver, and/or care coordination for the diagnoses above. Electronically Signed by: Matt Wright MD T: 1:33 AM CC: Kirt?Yue? PCP: Ajith Khanna Referring: Ajith Cade This document was completed utilizing speech recognition software. Grammatical errors, random word insertions, pronoun errors, and incomplete sentences are an occasional consequence of this system due to software limitations, ambient noise, and hardware issues. Any formal questions or concerns about the content, text or information contained within the body of this dictation should be directly addressed to the provider for clarification.
== END 2025-01-19 23:59 | disposition home or self-care (01) ==
LOC: SCTC 11:37
PROVIDERS: PCP Family Medicine; Referring Provider Family Medicine; Visit Provider Internal Medicine Hematology & Oncology
DX: C49.22 Malignant neoplasm of connective and soft tissue of left lower limb, including hip (principal); E23.0 Hypopituitarism; M85.80 Other specified disorders of bone density and structure, unspecified site
CPT/HCPCS: 99212; G0463

== ENCOUNTER 2025-01-27 09:14 | Outpatient (RCR) | payer MEDICARE, MEDICAID, SELFPAY | END 2025-02-19 23:59 | disposition home or self-care (01) | LOC: SCTC 09:14 | PROVIDERS: PCP Family Medicine; Referring Provider Family Medicine; Visit Provider Internal Medicine Hematology & Oncology | DX: Z45.2 Encounter for adjustment and management of vascular access device (principal); C49.22 Malignant neoplasm of connective and soft tissue of left lower limb, including hip; M85.80 Other specified disorders of bone density and structure, unspecified site; E23.0 Hypopituitarism | CPT/HCPCS: 96523; A4216; J1642 ==

== ENCOUNTER 2025-03-09 10:18 | Outpatient (RCR) | payer MEDICARE, MEDICAID, SELFPAY ==
[2025-03-02 09:58] LABS: Basophils % (Auto) 0 % (0-2.5); Eosinophils # (Auto) 0.1 Thou/mm3 (0.0-0.5); Eosinophils % (Auto) 2 % (0-10); Hematocrit 40.4 % (41.0-53.0); Immature Granulocytes % (Auto) 0 % (0-0); Immature Granulocytes Auto 0.01 Thou/mm3 (0.00-0.00); Lymphocytes # (Auto) 2.7 Thou/mm3 (1.0-4.8); Lymphocytes % (Auto) 49 % (10-50); Mean Corpuscular HGB Conc 34.7 g/dl (31.0-37.0); Mean Corpuscular Volume 89 fL (80-100); Monocytes # (Auto) 0.5 Thou/mm3 (0.0-0.8); Monocytes % (Auto) 9 % (0-12); Neutrophils # (Auto) 2.1 Thou/mm3 (1.8-7.7); Neutrophils % (Auto) 39 % (37-80); Nucleated Red Blood Cell % 0 /100 WBC (0); Platelet Count 175 Thou/mm3 (140-440); RDW Standard Deviation 40.7 fL (35.1-43.9); Red Blood Count 4.52 Miln/mm3 (4.50-5.90); White Blood Count 5.4 Thou/mm3 (3.8-10.6)
[2025-03-02 10:14] LABS: Cardiac Risk Estimate 5.3 RATIO (4.0-6.7); Cholesterol 242 mg/dL (132-200); HDL Cholesterol 46 mg/dL (40-60); LDL Cholesterol,Calculated 175 mg/dL (0-130); Triglycerides 106 mg/dL (30-150)
[2025-03-02 10:31] LABS: Alanine Aminotransferase 10 U/L (10-49); Albumin, Serum 4.1 gm/dL (3.4-4.8); Albumin/Globulin Ratio 2.3 (1.2-2.2); Alkaline Phosphatase 48 U/L (46-116); Anion Gap 10 (7-16); Aspartate Amino Transferase 18 U/L (0-34); BUN/Creatinine Ratio 20 Ratio (12-20); Blood Urea Nitrogen 20 mg/dL (9-23); Calcium 8.6 mg/dL (8.3-10.6); Calcium (Corrected) 8.6 mg/dL (8.5-10.1); Carbon Dioxide 23.9 mMol/L (20.0-31.0); Chloride 108 mMol/L (98-107); Free T4 (Free Thyroxine) 1.43 ng/dL (0.89-1.76); Globulin 1.8 gm/dL (2.3-3.5); Glucose 92 mg/dL (74-106); Osmolality,Calculated 285 (275-295); Potassium 3.8 mMol/L (3.4-5.1); Sodium 142 mMol/L (136-145); Total Protein 5.9 gm/dL (5.7-8.2); eGFR > 60 See Note
--- NOTE | 2025-03-14 01:42 | CTCFLWUP_ITS ---
Patient: NICOLETTE BELL : 1960 Page 10 of 12 FOLLOW UP NOTE DATE OF SERVICE: 03/09/2025 NAME: NICOLETTE BELL ACCOUNT: [id number] : 1960 AGE: 65 INTERVAL HISTORY: Patient today seen with his . He is doing well and have no complaints. His energy level have returned. He has good appetite and not losing any weight. Patient's immunotherapy has been held since having very severe allergic reaction and immune hyper immune response to immunotherapy. 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 He was having pain in the left lower extremity for last 20 years. Recently started noticing masses which were ulcerating. he had one of the large ulcerating mass biopsied by Dr. Davion Bravo. 10/23/2022: Left lower leg mass excision? 10/31/2022: CT scan of the chest abdomen with IV contrast? 11/05/2022: PET/CT scan 11/07/2022: Ultrasound-guided fine-needle aspiration of the left inguinal lymph node? 11/22/2022: Patient underwent left knee amputation 01/08/2023: CT scan of the chest, abdomen and pelvis with contrast? 01/23/2023: This was discussed at [facility] sarcoma tumor [facility] 01/01/2024: CT scan of the chest abdomen and pelvis? 01/08/2024: Dr. Correa of [facility] saw Mr. Bell and recommended immune-based therapy with ipilimumab and nivolumab ONCOLOGY HISTORY:?[facility] Hx? 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 He is doing well and have no complaints. His energy level have returned. 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 He was having pain in the left lower extremity for last 20 years. Recently started noticing masses which were ulcerating. he had one of the large ulcerating mass biopsied by Dr. Davion Bravo. 10/23/2022: Left lower leg mass excision? 10/31/2022: CT scan of the chest abdomen with IV contrast? 11/05/2022: PET/CT scan 11/07/2022: Ultrasound-guided fine-needle aspiration of the left inguinal lymph node? 11/22/2022: Patient underwent left knee amputation 01/08/2023: CT scan of the chest, abdomen and pelvis with contrast? 01/23/2023: This was discussed at the [facility] sarcoma tumor board 01/01/2024: CT scan of the chest abdomen and pelvis? 01/08/2024: Dr. Correa of [facility] saw Mr. Bell and recommended immune-based therapy with ipilimumab and nivolumab DIAGNOSIS: Stage IV pleomorphic dermal sarcoma, grade 3. TMB 9 mutations per megabyte S/p 4 cycles of Gemzar and Taxotere in the adjuvant setting (04/22/2023 - 08/06/2023) hypertension DATE OF DIAGNOSIS: 10/23/2022 STAGE/TNM: sarcoma TREATMENT HISTORY: Care?Plan Start?Date Cycle Day Intent VENOfer?200mg?IV?wkly?for?10?weeks 11/19/2022 1 70 Palliative Gemcitabine?Taxotere 04/22/2023 1 21 Palliative Nivo?3?Ipi?1?sarcoma?[place]?[id number]?Part?1 01/15/2024 1 21 Palliative Nivo?3?Ipi?1?sarcoma?[place]?[id number]?Part?2 04/05/2024 1 14 Palliative HISTORY OF PRESENT ILLNESS: OTHER MEDICAL HISTORY/CONDITIONS: HTN Hypertension Anemia Chronic Regional pain syndrome- left leg Appendectomy - age 26 Left knee surgery - 1996 FAMILY HISTORY: Mother:?Breast?-?dx?age?70 SOCIAL HISTORY: 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 Tobacco?Use:?Denies ETOH?Use:?Denies Drug?Note:?Denies Social?History?Note:?Lives?with? MEDICATIONS: 1. cetirizine - 10 mg 1 Capsule Daily 2. hydrocortisone - 10 mg 1 tab As directed 3. hydrocortisone - 5 mg tab As directed 4. levothyroxine - 75 mcg 1 Capsule Daily 5. Lipitor - 40 mg 1 tab Daily 6. losartan - 50 mg 1 tab Daily 7. pantoprazole - 40 mg 1 tab Daily 8. Vitamin C - 500 mg 1 tab Three times a day?Palabra Meds? Medications Last Reconciled by Homa Aguilera MA on 03/09/2025 ALLERGIES: tetracycline REVIEW OF SYSTEMS: A complete 14-point review of systems was performed and is negative except as noted in interval history. PHYSICAL EXAMINATION:?CloneBlock PE? VITAL SIGNS: Temperature?98.2, B/P?126/85, Oxygen?Saturation?96% PAIN: 0 - No pain ECOG Performance Status: 0 - Asymptomatic and fully active EYE: Conjunctivae is white MOUTH: Oral cavity is moist CHEST: Breathes at room air l CARDIAC no chest pain or discomfort ABDOMEN no abnormal swelling noted EXTREMITIES: Patient has left knee amputation. LABORATORY DATA: I have personally reviewed and interpreted each of the patient?s relevant lab tests, abnormal findings are below: Date 11/29/24 03/02/25 ??WHITE?BLOOD?COUNT?(Thou/mm3) 5.7 5.4 ??RED?BLOOD?COUNT?(Miln/mm3) 4.57 4.52 ??HEMOGLOBIN?(gm/dl) 13.9 14.0 ??HEMATOCRIT?(%) 40.6?L 40.4?L ??PLATELET?COUNT?(Thou/mm3) 198 175 ??NEUTROPHILS?%,?AUTO?(%) 37 39 ??LYMPH?%,?AUTO?(%) 52?H 49 ??NEUTROPHILS,?AUTO?(Thou/mm3) 2.1 2.1 ??GLUCOSE,RANDOM?(mg/dL) ? 92 ??BLOOD?UREA?NITROGEN?(mg/dL) ? 20 ??CREATININE?(mg/dL) ? 1.00 ??SODIUM?(mmol/L) ? 142 ??POTASSIUM?(mmol/L) ? 3.8 ??CHLORIDE?(mmol/L) ? 108?H ??CrCl?(CandG)?(ml/min) ? 85.63 ??AST/SGOT?(Unit/L) ? 18 ??ALT/SGPT?(Unit/L) ? 10 ??ALKALINE?PHOSPHATASE?(Unit/L) ? 48 ??BILIRUBIN,?TOTAL?(mg/dL) ? 1.0 ??PROTEIN?TOTAL?(gm/dl) ? 5.9 ??ALBUMIN,?SERUM?(gm/dl) ? 4.1 ??GLOBULIN?(gm/dl) ? 1.8?L ??ALBUMIN/GLOBULIN?RATIO ? 2.3?H ??CALCIUM,?SERUM?(mg/dL) ? 8.6 ??CALCIUM?SERUM?(CORRECTED)?(mg/dL) ? 8.6 Laboratory, Imaging, and Diagnostic Test Results - PET-CT scan (February 28, 2025): - Right upper lobe pulmonary nodule: 1.4 x 1.1 cm, minimal hypermetabolism, SUV max 1.9 - Left lower lobe pulmonary nodule: 1.1 x 1.0 cm, unchanged in size - Multiple lymph nodes: stable - Bilateral nodules: similar size with minimal hypermetabolism - Left through knee amputation: minor nonspecific uptake along the intercondylar notch - Previous results: - PET-CT scan (March 18, 2025): - Right upper lobe pulmonary nodule: 1.4 x 1.0 cm ASSESSMENT/PLAN:?Clara Wright Assessment/Plan? 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 Bell last scan has been stable #2 sarcoma Reviewed patient's records from [facility] Initially treated with gem cis followed by resection Patient received nivolumab and ipilimumab when he had recurrence Patient developed severe thyroiditis and hypophysitis Can try nivo in future on recurrence Patient was seen at sarcoma center and offered clinical trial. Patient at this time would like to wait until patient had a confirmed recurrence Pulmonary nodules Assessment: Patient has two pulmonary nodules identified on recent PET-CT scan dated February 28, 2025. The right upper lobe nodule measures 1.4 x 1.1 cm with minimal hypermetabolism (SUV max 1.9), slightly increased from previous measurement of 1.4 x 1.0 cm. The left lower lobe nodule measures 1.1 x 1.0 cm, unchanged in size. Multiple lymph nodes are noted to be stable. Compared to prior FDG PET from March 18, 2025, the bilateral nodules show similar size and minimal hypermetabolism. No suspicious new metastatic disease is identified. Plan: - Repeat PET-CT scan in 4 months (already scheduled) - Follow-up appointment after the scan (in approximately 4-5 months) Left through knee amputation Assessment: Patient has a history of left through knee amputation. Recent PET-CT scan shows similar appearance of the amputation site with minor nonspecific uptake along the intercondylar notch. Plan: - Continue monitoring as part of overall follow-up 3. osteopenia Patient have low bone desity Will start on zometa dental clearance is obtained Patient is high risk for fracture as also on chronic steroids Continue calcium and vitamin D ORDERS: Order # Description [id number] Thyroid Stimulating Hormone + Comprehensive Metabolic Panel + CBC with Auto Diff + Thyroxine, Free RETURN TO CLINIC: BILLING AND COMPLIANCE: I reviewed external records from providers outside my specialty as summarized above. I spent a total of 50 minutes on this patient?s care on the day of their visit excluding time spent related to any billed procedures. This time includes time spent with the patient as well as time spent documenting in the medical record, reviewing patients records and tests, obtaining history, placing orders, communicating with other healthcare professionals, counseling the patient, family or caregiver, and/or care coordination for the diagnoses above. Electronically Signed by: Matt Wright MD T: 1:39 AM CC: Kirt?Yue,? PCP: Ajith Khanna Referring: Ajith Khanna This document was completed utilizing speech recognition software. Grammatical errors, random word insertions, pronoun errors, and incomplete sentences are an occasional consequence of this system due to software limitations, ambient noise, and hardware issues. Any formal questions or concerns about the content, text or information contained within the body of this dictation should be directly addressed to the provider for clarification.
== END 2025-03-21 23:59 | disposition home or self-care (01) ==
LOC: SCTC 10:18
PROVIDERS: PCP Family Medicine; Referring Provider Family Medicine; Visit Provider Internal Medicine Hematology & Oncology
DX: Z08 Encounter for follow-up examination after completed treatment for malignant neoplasm (principal); Z85.831 Personal history of malignant neoplasm of soft tissue; R74.01 Elevation of levels of liver transaminase levels; E23.0 Hypopituitarism; R91.8 Other nonspecific abnormal finding of lung field; M85.88 Other specified disorders of bone density and structure, other site; Z89.512 Acquired absence of left leg below knee; I10 Essential (primary) hypertension
CPT/HCPCS: 36591; 80053; 80061; 84439; 84443; 84450; 85025; 96372; 99212; A4216; J1642; G0463

== ENCOUNTER 2025-05-20 07:19 | Outpatient (RCR) | payer MEDICARE, MEDICAID, SELFPAY | END 2025-05-22 23:59 | disposition home or self-care (01) | LOC: SCTC 07:19 | PROVIDERS: PCP Family Medicine; Referring Provider Family Medicine; Visit Provider Internal Medicine Hematology & Oncology | DX: Z45.2 Encounter for adjustment and management of vascular access device (principal); C49.22 Malignant neoplasm of connective and soft tissue of left lower limb, including hip | CPT/HCPCS: 96523; A4216; J1642 ==

== ENCOUNTER 2025-06-13 19:02 | Emergency (ER) | payer MEDICARE, MEDICAID, SELFPAY ==
[2025-06-13 19:02] VITALS: BMI 31.0
[2025-06-13 19:43] VITALS: BP 133/76; PULSE 49; RESP 18; TEMP 37; O2SAT 100
--- NOTE | 2025-06-13 19:59 | PD.EDRME ---
Rapid Medical Screening Exam RME Arrival date/time: 06/13/25 19:02 Chief Complaint: Abdominal Pain Time Seen by Provider: 06/13/25 19:42 Vital signs: Vital Signs Temperature 98.6 F 06/13/25 19:43 Pulse Rate 49 L 06/13/25 19:43 Respiratory Rate 18 06/13/25 19:43 Blood Pressure 133/76 H 06/13/25 19:43 Pulse Oximetry (%) 100 06/13/25 19:43 Oxygen Delivery Method Room Air 06/13/25 19:43 RME Narrative: Epigastric/RUQ abdominal pain with nausea/vomiting that initiated this morning. Patient hx of adrenal insufficiency, has been unable to keep his hydrocortisone down today. MD Attestation MD Attestation EKGs were nonischemic.
--- NOTE | 2025-06-13 20:00 | EKG_ITS ---
[facility] Test Date: 2025-06-13 Pat Name: RUBI CARTER Department: Room: - Gender: Male Ethnographer: : 1960 Requested By: Crow Hernandez Order Number: [id number] Reading MD: Crow Hernandez Measurements Intervals [place] Rate: 53 P: 46 DC: 188 QRS: 47 QRSD: 93 T: 87 QT: 413 QTc: 391 Interpretive Statements SINUS BRADYCARDIA POSSIBLE ANTERIOR MYOCARDIAL INFARCTION , OF INDETERMINATE AGE [30 ms Q WAVE IN V3/V4, OR R < 0.2 mV IN V4] Compared to ECG 03/17/2024 21:06:33 Myocardial infarct finding now present Sinus tachycardia no longer present /store/S0/[id number]/ecg/[id number].pdf
--- NOTE | 2025-06-13 20:00 | XR_ITS ---
Examination: Abdomen sonogram, Limited Date and time of exam: June 13, 2025, 2010 hrs. Indications: Right upper abdominal pain epigastric pain and vomiting today Technique: Real-time hopkins scale transabdominal sonographic images of the upper abdomen obtained. Findings: Negative for gallstones Gallbladder wall 0.4 cm no edema Common bile duct 0.4 cm Pancreatic head 3.0 cm Liver 16.9 cm fatty impression no focal liver lesions Normal hepatopedal portal venous flow Patent IVC Impression: Normal gallbladder Normal common bile duct Mild hepatomegaly fatty infiltration no focal liver lesions
[2025-06-13] MEDS: ONDANSETRON ODT 4 MG TABRAP PO (20:40)
[2025-06-13 20:53] LABS: Basophils # (Auto) 0.0 Thou/mm3 (0.0-0.2); Basophils % (Auto) 0 % (0-2.5); Eosinophils # (Auto) 0.1 Thou/mm3 (0.0-0.5); Eosinophils % (Auto) 1 % (0-10); Hematocrit 44.7 % (41.0-53.0); Hemoglobin 15.2 g/dL (13.5-16.0); Immature Granulocytes Auto 0.04 Thou/mm3 (0.00-0.00); Lymphocytes # (Auto) 1.9 Thou/mm3 (1.0-4.8); Lymphocytes % (Auto) 26 % (10-50); Mean Corpuscular HGB Conc 34.0 g/dl (31.0-37.0); Mean Corpuscular Hemoglobin 30.4 pg (25.0-35.0); Mean Corpuscular Volume 89 fL (80-100); Monocytes # (Auto) 0.6 Thou/mm3 (0.0-0.8); Monocytes % (Auto) 8 % (0-12); Neutrophils # (Auto) 4.8 Thou/mm3 (1.8-7.7); Neutrophils % (Auto) 64 % (37-80); Nucleated Red Blood Cell # 0.00 Thou/mm3 (0.00-0.00); Nucleated Red Blood Cell % 0 /100 WBC (0); Platelet Count 210 Thou/mm3 (140-440); RDW Standard Deviation 42.3 fL (35.1-43.9); Red Blood Count 5.00 Miln/mm3 (4.50-5.90); White Blood Count 7.4 Thou/mm3 (3.8-10.6)
[2025-06-13 21:14] LABS: Alanine Aminotransferase 91 U/L (10-49); Albumin, Serum 4.4 gm/dL (3.4-4.8); Albumin/Globulin Ratio 2.1 (1.2-2.2); Alkaline Phosphatase 135 U/L (46-116); Amylase 53 U/L (30-118); Anion Gap 7 (7-16); Aspartate Amino Transferase 163 U/L (0-34); BUN/Creatinine Ratio 13 Ratio (12-20); Bilirubin,Total 2.1 mg/dL (0.3-1.2); Blood Urea Nitrogen 14 mg/dL (9-23); Calcium 9.5 mg/dL (8.3-10.6); Calcium (Corrected) 9.5 mg/dL (8.5-10.1); Carbon Dioxide 27.7 mMol/L (20.0-31.0); Chloride 107 mMol/L (98-107); Creatinine (Component) 1.1 mg/dL (0.6-1.3); Estimated Creatinine Clearance 77.3 mL/min (>60); Globulin 2.1 gm/dL (2.3-3.5); Glucose 112 mg/dL (74-106); Osmolality,Calculated 284 (275-295); Potassium 4.6 mMol/L (3.4-5.1); Sodium 142 mMol/L (136-145); Total Protein 6.5 gm/dL (5.7-8.2); Troponin I < 0.002 ng/mL (0.0-0.045); eGFR > 60 See Note
--- NOTE | 2025-06-13 22:47 | EDNOTE_ITS ---
ED Abdominal Pain RME/HPI General Chief Complaint: Abdominal Pain Stated complaint: ABD PAIN WITH VOMITING SINCE 1500 Time seen by provider: 06/13/25 19:42 Arrival date/time: 06/13/25 19:02 RME / HPI RME / HPI narrative: Epigastric/RUQ abdominal pain with nausea/vomiting that initiated this morning. Patient hx of adrenal insufficiency, has been unable to keep his hydrocortisone down today. DR. LOMBARDO MAIN ED EVALUATION: 65 y/o male with Hx of Alamosa's Disease, GERD, and Carcoma presents to ED c/o RUQ abdominal pain that radiates to the epigastric region with associated nausea and vomiting x 1 day. Patient has not been able to keep down his Hydrocortisone. Related Data Home Medications ?Medication ?Instructions ?Recorded ?Confirmed losartan 25 mg tablet 50 mg PO QDAY 03/11/2410/14 pantoprazole 40 mg tablet,delayed 40 mg PO HS 03/11/24 10/14/24 release cetirizine 10 mg tablet 10 mg PO QDAY 10/14/2410/14 hydrocortisone 10 mg tablet 10 mg PO QDAY 10/14/24 hydrocortisone 5 mg tablet 5 mg PO HS 10/14/24 5 levothyroxine 50 mcg tablet 50 mcg PO QDAY 10/14/24 Previous Rx's ?Medication ?Instructions ?Recorded ondansetron 4 mg disintegrating 4 mg PO Q6H PRN nausea and 06/13/25 tablet vomiting #20 tabs Allergies Allergy/AdvReac Type Severity Reaction Status Date / Time melon Allergy Severe Swelling Verified 06/13/25 19:05 of Lip/Tongue/Throat erythromycin base Allergy Verified 06/13/25 19:05 Review of Systems Review of Systems Systems Reviewed: All systems reviewed, normal except as documented Past Medical History Past Medical History CARDIAC: Positive Hypercholesterolemia and Hypertension (no meds) GASTROINTESTINAL: Positive Gastrointestinal Disorders, Hemorrhoids, Gastroesophageal Reflux Disease and Obesity GENITOURINARY: Positive Genitourinary Disorders and Kidney Stones MUSCULOSKELETAL: Positive Musculoskeletal Disorders, Arthritis and Osteomyelitis ENT: Positive Deafness ENDOCRINE: Positive Alamosa's Disease and Hypothyroidism OTHER HISTORY: Positive Hospitalization, Measles and Cancer (dermal sarcoma with mets tolungs) Family History FAMILY HISTORY: Positive Family Surgery Surgical History SURGICAL: Positive Amputation ED Exam Narrative Physical exam: Generally patient is alert and in no obvious distress, heart regular rate and rhythm, lungs clear to auscultation equal bilaterally, abdomen soft bowel sounds present nondistended minimal right upper quadrant abdominal tenderness without rebound. Negative Xiao sign., Skin is cool pale and dry, neurologic exam [place] Coma Scale of 15 without focal motor deficit Course Quality Measures none Orders Category Date Time Status EKG (ED ONLY) *Do not use* NOW Care 06/13/25 20:00 Completed EKG (ED Only) Stat Exams 06/13/25 20:00 Draft US gall bladder Stat Exams 06/13/25 20:00 Completed Amylase Stat Lab 06/13/25 20:38 Completed CBC Stat Lab 06/13/25 20:38 Completed CMP [Comprehensive Metabolic Panel] Stat Lab 06/13/25 20:38 Completed Troponin I Stat Lab 06/13/25 20:38 Completed UA [Urinalysis] Stat Lab 06/13/25 20:00 Ordered Ondansetron Odt [Zofran Odt] Med 06/13/25 20:00 Discontinued 4 mg PO X1 ONE Vital Signs Vital signs: Vital Signs Temperature 98.6 F 06/13/25 19:43 Pulse Rate 49 L 06/13/25 19:43 Respiratory Rate 18 06/13/25 19:43 Blood Pressure 133/76 H 06/13/25 19:43 Pulse Oximetry (%) 100 06/13/25 19:43 Oxygen Delivery Method Room Air 06/13/25 19:43 Abdominal Pain MDM MDM Narrative MDM Narrative:: Scribe Attestation: IAlia, micheal scribing for and in the presence of Dr. Lombardo. Provider Notation: Although this document has been carefully reviewed, there may still be some phonetic and other typographical errors. These errors are purely g rammatical due to imperfections in the software program and should not be construed in any way to compromise the substance of the patient's medical care during this visit. I interpreted all labs. LFTs are slightly elevated when compared to those in February. Patient knows of this recent elevation in LFTs because of the immunotherapy he had been on for his cancer which is sarcoma. Gallbladder ultra sound showed no stones with no wall thickening and no Vladimir cholecystic fluid and a normal common bile duct. Patient received Zofran here in the emergency room with benefit. He will be discharged in stable condition. He was able to hold down his hydrocortisone for Alamosa's disease here in the emergency room. Zofran as prescribed. Follow-up with his doctor. Return to ER as needed or if condition worsens. Patient data External records reviewed:: [facility] previous records (Reviewed prior ED records from 10/14/24. Patient was seen for Adrenal insufficiency due to cancer therapy.) Clinical information provided by:: patient Social determinants that could affect healthcare access:: none Patient has the following chronic illnesses:: Hypercholesterolemia, Hypertension, Hemorrhoids, Gastroesophageal Reflux Disease, Obesity, Kidney Stones, Arthritis and Osteomyelitis, Deafness, Alamosa's Disease, Hypothyroidism, Cancer How is presenting disease/condition affected by chronic disease/condition?: exacerbated by Evaluation data The following diagnostics were reviewed and interpreted by me:: lab results, radiology exam(s) and EKG tracing(s) Lab and/or radiology exams considered but not ordered:: None Interpretation Summary: RADIOLOGY Gall Bladder US: Findings: Negative for gallstones Gallbladder wall 0.4 cm no edema Common bile duct 0.4 cm Pancreatic head 3.0 cm Liver 16.9 cm fatty impression no focal liver lesions Normal hepatopedal portal venous flow Patent IVC Impression: Normal gallbladder Normal common bile duct Mild hepatomegaly fatty infiltration no focal liver lesions Medications / Prescriptions Medications or Prescriptions considered but not ordered:: None Medication administrations:: Medication Administration History Discontinued Medications Ondansetron HCl (Ondansetron Odt 4 Mg Tabrap) 4 mg PO X1 ONE; Protocol Stop: 06/13/25 20:01 Last Admin: 06/13/25 20:40 Dose: 4 mg Documented By: CN See above if any Consultations Consultation(s) initiated? (list below): No Diagnosis Differential diagnosis abdominal pain: abdominal pain, calculus of kidney, constipation, diverticulitis, gastroenteritis, pancreatitis and small bowel obstruction Most likely diagnosis given after review of the tests above:: none Admission Indicated Admission indicated?: not indicated Explain why admission is indicated or not indicated:: Patient does not meet admission criteria. Admission Request Was there a request for admission?: No Disposition Plan Disposition Plan: Discharge Discharge Attestation Discharge Attestation: The patient and all family members were given an opportunity to ask questions and understood the discharge instructions. Discharge instructions specifically effects, indications for sooner follow up or return to the emergency department, and the expected course of current diagnosis. Patient condition: Stable Discharge Plan Plan Patient Disposition: HOME (Self Care) Prescriptions/Referrals Prescriptions/Med Rec: New ondansetron 4 mg tablet,disintegrating 4 mg PO Q6H PRN (Reason: nausea and vomiting) Qty: 20 0RF No Action hydrocortisone 5 mg tablet 5 mg PO HS Patient Comments: TAKE 1 TABLET BY MOUTH EVERY 6 HOURS NEEDED cetirizine 10 mg tablet 10 mg PO QDAY Patient Comments: TAKE 1 TABLET BY MOUTH DAILY levothyroxine 50 mcg tablet 50 mcg PO QDAY hydrocortisone 10 mg Tablet 10 mg PO QDAY pantoprazole 40 mg Tablet,Delayed Release (Dr/Ec) 40 mg PO HS losartan 25 mg Tablet 50 mg PO QDAY Referrals: Ajith Khanna MD [Primary Care Provider, Family Practice] - In 1 week Problem List Clinical Impression: Vomiting Patient/Caregiver Discharge Instructions Additional Instructions: Continue current medications. Zofran as prescribed. Follow-up with your doctor. Return to ER as needed or if condition worsens. Print Language: Northern Irish Stand Alone Forms: Т[employer] Award Info., Patient Portal Info Letter
[2025-06-13 22:53] VITALS: BP 118/77; PULSE 60; RESP 18; TEMP 36.7; O2SAT 99
== END 2025-06-13 23:21 | disposition home or self-care (01) ==
PROVIDERS: Physician Assistant; Emergency Provider Emergency Medicine; PCP Family Medicine
DX: R11.2 Nausea with vomiting, unspecified (principal); K76.0 Fatty (change of) liver, not elsewhere classified; I10 Essential (primary) hypertension; E78.00 Pure hypercholesterolemia, unspecified; K21.9 Gastro-esophageal reflux disease without esophagitis; E03.9 Hypothyroidism, unspecified; E27.1 Primary adrenocortical insufficiency; H91.90 Unspecified hearing loss, unspecified ear; C49.9 Malignant neoplasm of connective and soft tissue, unspecified; C78.00 Secondary malignant neoplasm of unspecified lung; E66.9 Obesity, unspecified; Z68.31 Body mass index [BMI] 31.0-31.9, adult
CPT/HCPCS: 36415; 76705; 80053; 81001; 82150; 84484; 85025; 93005; 99283; Q0162

== ENCOUNTER 2025-06-14 14:36 | Outpatient (RCR) | payer MEDICARE, MEDICAID, SELFPAY ==
[2025-06-14 15:39] LABS: Collection Type, Urine Voided
[2025-06-14 15:43] LABS: Basophils # (Auto) 0.0 Thou/mm3 (0.0-0.2); Basophils % (Auto) 1 % (0-2.5); Eosinophils # (Auto) 0.1 Thou/mm3 (0.0-0.5); Eosinophils % (Auto) 2 % (0-10); Hematocrit 43.2 % (41.0-53.0); Hemoglobin 15.0 g/dL (13.5-16.0); Immature Granulocytes Auto 0.03 Thou/mm3 (0.00-0.00); Lymphocytes # (Auto) 1.3 Thou/mm3 (1.0-4.8); Lymphocytes % (Auto) 21 % (10-50); Mean Corpuscular HGB Conc 34.7 g/dl (31.0-37.0); Mean Corpuscular Hemoglobin 30.8 pg (25.0-35.0); Mean Corpuscular Volume 89 fL (80-100); Monocytes # (Auto) 0.5 Thou/mm3 (0.0-0.8); Monocytes % (Auto) 9 % (0-12); Neutrophils # (Auto) 4.0 Thou/mm3 (1.8-7.7); Neutrophils % (Auto) 67 % (37-80); Nucleated Red Blood Cell # 0.00 Thou/mm3 (0.00-0.00); Nucleated Red Blood Cell % 0 /100 WBC (0); Platelet Count 224 Thou/mm3 (140-440); RDW Standard Deviation 42.5 fL (35.1-43.9); Red Blood Count 4.87 Miln/mm3 (4.50-5.90); White Blood Count 6.0 Thou/mm3 (3.8-10.6)
[2025-06-14 15:47] LABS: Bilirubin,Urine 2+ (Negative); Blood,Urine Negative (Negative); Clarity,Urine Clear (Clear/Hazy); Color,Urine Drk-Yellow (Lt Yel-Yel); Glucose, Urine Negative (Negative); Ketones,Urine Negative (Negative); Leukocyte Esterase,Urine Negative (Negative); Nitrite,Urine Negative (Negative); PH,Urine 6.5 (5.0-7.0); Protein,Urine Trace (Neg - Trace); RBC,Urine 1 /hpf (0-3); Specific Gravity,Urine 1.026 (1.001-1.035); Squamous Epithelial Cell,Urine < 1 /hpf (0-5); Urobilinogen,Urine 4.0 mg/dL (0.0-1.0); WBC,Urine 1 /hpf (0-5)
[2025-06-14 16:10] LABS: Bilirubin,Direct 2.4 mg/dL (0.0-0.3); Bilirubin,Indirect 1.6 mg/dL (0.0-1.1); Bilirubin,Total 4.0 mg/dL (0.3-1.2)
[2025-06-14 16:17] LABS: Alanine Aminotransferase 592 U/L (10-49); Albumin, Serum 4.2 gm/dL (3.4-4.8); Albumin/Globulin Ratio 2.1 (1.2-2.2); Alkaline Phosphatase 238 U/L (46-116); Anion Gap 9 (7-16); Aspartate Amino Transferase 667 U/L (0-34); BUN/Creatinine Ratio 11 Ratio (12-20); Bilirubin,Total 3.9 mg/dL (0.3-1.2); Blood Urea Nitrogen 12 mg/dL (9-23); Calcium 9.3 mg/dL (8.3-10.6); Calcium (Corrected) 9.3 mg/dL (8.5-10.1); Carbon Dioxide 24.2 mMol/L (20.0-31.0); Chloride 106 mMol/L (98-107); Creatinine (Component) 1.1 mg/dL (0.6-1.3); Globulin 2.0 gm/dL (2.3-3.5); Glucose 119 mg/dL (74-106); Osmolality,Calculated 278 (275-295); Potassium 3.9 mMol/L (3.4-5.1); Sodium 139 mMol/L (136-145); Total Protein 6.2 gm/dL (5.7-8.2); eGFR > 60 See Note
[2025-06-14 16:49] LABS: Hepatitis A Antibody IgM Non Reactive (Non React); Hepatitis B Core Antibody IgM Non Reactive (Non React); Hepatitis B Surface Antigen Non Reactive (Non React); Hepatitis C Antibody Non Reactive (Non React)
== END 2025-06-21 23:59 | disposition home or self-care (01) ==
LOC: SCTC 14:36
PROVIDERS: PCP Family Medicine; Referring Provider Family Medicine; Visit Provider Internal Medicine Hematology & Oncology
DX: C49.22 Malignant neoplasm of connective and soft tissue of left lower limb, including hip (principal); E23.0 Hypopituitarism; R91.8 Other nonspecific abnormal finding of lung field; Z89.512 Acquired absence of left leg below knee; M85.80 Other specified disorders of bone density and structure, unspecified site
CPT/HCPCS: 80053; 80074; 81001; 82247; 82248; 85025; 87086; 96361; 96365; A4216; J0696; J1642; J7030; J7040; J7050

== ENCOUNTER 2025-07-27 09:14 | Outpatient (RCR) | payer MEDICARE, MEDICAID, SELFPAY ==
[2025-07-25 16:18] LABS: Basophils # (Auto) 0.0 Thou/mm3 (0.0-0.2); Basophils % (Auto) 1 % (0-2.5); Eosinophils # (Auto) 0.1 Thou/mm3 (0.0-0.5); Eosinophils % (Auto) 1 % (0-10); Hematocrit 41.3 % (41.0-53.0); Hemoglobin 14.1 g/dL (13.5-16.0); Immature Granulocytes Auto 0.04 Thou/mm3 (0.00-0.00); Lymphocytes # (Auto) 2.0 Thou/mm3 (1.0-4.8); Lymphocytes % (Auto) 25 % (10-50); Mean Corpuscular HGB Conc 34.1 g/dl (31.0-37.0); Mean Corpuscular Hemoglobin 30.6 pg (25.0-35.0); Mean Corpuscular Volume 90 fL (80-100); Monocytes # (Auto) 0.5 Thou/mm3 (0.0-0.8); Monocytes % (Auto) 6 % (0-12); Neutrophils # (Auto) 5.3 Thou/mm3 (1.8-7.7); Neutrophils % (Auto) 67 % (37-80); Nucleated Red Blood Cell # 0.00 Thou/mm3 (0.00-0.00); Nucleated Red Blood Cell % 0 /100 WBC (0); Platelet Count 202 Thou/mm3 (140-440); RDW Standard Deviation 41.9 fL (35.1-43.9); Red Blood Count 4.61 Miln/mm3 (4.50-5.90); White Blood Count 7.9 Thou/mm3 (3.8-10.6)
[2025-07-25 16:28] LABS: Alanine Aminotransferase 12 U/L (10-49); Albumin, Serum 4.2 gm/dL (3.4-4.8); Albumin/Globulin Ratio 2.3 (1.2-2.2); Alkaline Phosphatase 60 U/L (46-116); Anion Gap 11 (7-16); Aspartate Amino Transferase 20 U/L (0-34); BUN/Creatinine Ratio 12 Ratio (12-20); Bilirubin,Total 0.9 mg/dL (0.3-1.2); Blood Urea Nitrogen 13 mg/dL (9-23); Calcium 8.8 mg/dL (8.3-10.6); Calcium (Corrected) 8.8 mg/dL (8.5-10.1); Carbon Dioxide 24.6 mMol/L (20.0-31.0); Chloride 108 mMol/L (98-107); Creatinine (Component) 1.1 mg/dL (0.6-1.3); Free T4 (Free Thyroxine) 1.46 ng/dL (0.89-1.76); Globulin 1.8 gm/dL (2.3-3.5); Glucose 86 mg/dL (74-106); Osmolality,Calculated 285 (275-295); Potassium 4.0 mMol/L (3.4-5.1); Sodium 144 mMol/L (136-145); Thyroid Stimulating Hormone 1.03 uIU/mL (0.55-4.78); Total Protein 6.0 gm/dL (5.7-8.2); eGFR > 60 See Note
--- NOTE | 2025-07-27 10:49 | CTCFLWUP_ITS ---
Patient: NICOLETTE BELL : 1960 Page 8 of 10 FOLLOW UP NOTE DATE OF SERVICE: 07/27/2025 NAME: NICOLETTE BELL ACCOUNT: [id number] : 1960 AGE: 65 INTERVAL HISTORY: Patient doing well. Patient here for review of labs .patient still have phantom pains. 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 He was having pain in the left lower extremity for last 20 years. Recently started noticing masses which were ulcerating. he had one of the large ulcerating mass biopsied by Dr. Davion Bravo. 10/23/2022: Left lower leg mass excision? 10/31/2022: CT scan of the chest abdomen with IV contrast? 11/05/2022: PET/CT scan 11/07/2022: Ultrasound-guided fine-needle aspiration of the left inguinal lymph node? 11/22/2022: Patient underwent left knee amputation 01/08/2023: CT scan of the chest, abdomen and pelvis with contrast? 01/23/2023: This was discussed at the [facility] sarcoma tumor board 01/01/2024: CT scan of the chest abdomen and pelvis? 01/08/2024: Dr. Correa of [facility] saw Mr. Bell and recommended immune-based therapy with ipilimumab and nivolumab 01/23/2023: This was discussed at the [facility] sarcoma tumor board 01/01/2024: CT scan of the chest abdomen and pelvis? 01/08/2024: Dr. Correa of [facility] saw Mr. Bell and recommended immune-based therapy with ipilimumab and nivolumab DIAGNOSIS: Stage IV pleomorphic dermal sarcoma, grade 3. 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 s/p 4 cycles of gem tax with response s/p resection followed by bilateral pulmonary nodules consistent with metastatic disease treated with nivolumab and ipilimumab Patient developed thyroiditis and possible adrenal insufficiency Immunotherapy stopped and has been monitored Patient now on replacement therapy for thyroid as well as steroids for adrenal insufficiency Follows with endocrinology at [facility] TREATMENT HISTORY: Care?Plan Start?Date Cycle Day Intent VENOfer?200mg?IV?wkly?for?10?weeks 11/19/2022 1 70 Palliative Gemcitabine?Taxotere 04/22/2023 1 21 Palliative Nivo?3?Ipi?1?sarcoma?[place]?[id number]?Part?1 01/15/2024 1 21 Palliative Nivo?3?Ipi?1?sarcoma?[place]?[id number]?Part?2 04/05/2024 1 14 Palliative Zoledronic?Acid?4?mg 07/27/2025 1 90 Palliative OTHER MEDICAL HISTORY/CONDITIONS: HTN Hypertension Anemia Chronic Regional pain syndrome- left leg Appendectomy - age 26 Left knee surgery - 1996 FAMILY HISTORY: Mother:?Breast?-?dx?age?70 SOCIAL HISTORY: 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 Tobacco?Use:?Denies ETOH?Use:?Denies Drug?Note:?Denies Social?History?Note:?Lives?with? MEDICATIONS: 1. cetirizine - 10 mg 1 Capsule Daily 2. hydrocortisone - 10 mg 1 tab As directed 3. hydrocortisone - 5 mg tab As directed 4. levothyroxine - 75 mcg 1 Capsule Daily 5. Lipitor - 40 mg 1 tab Daily 6. losartan - 50 mg 1 tab Daily 7. ondansetron - 8 mg 1 tab 1 tab three times dialy as needed 8. pantoprazole - 40 mg 1 tab Daily 9. Vitamin C - 500 mg 1 tab Three times a day Medications Last Reconciled by Brittany Garibay MD on 07/27/2025 ALLERGIES: tetracycline REVIEW OF SYSTEMS: A complete 14-point review of systems was performed and is negative except as noted in interval history. PHYSICAL EXAMINATION: VITAL SIGNS: Temperature?96.9, B/P?144/80, Oxygen?Saturation?98% Weight?215?lbs (Change?since?07/25/25:?-3.4?lbs) PAIN: 0 - No pain EYE: Conjunctivae is white MOUTH: Oral cavity is moist CHEST: Breathes at room air l CARDIAC no chest pain or discomfort ABDOMEN no abnormal swelling noted EXTREMITIES: Patient has left knee amputation. LABORATORY DATA: I have personally reviewed and interpreted each of the patient?s relevant lab tests, abnormal findings are below: Date 06/14/25 07/25/25 ??WHITE?BLOOD?COUNT?(Thou/mm3) 6.0 7.9 ??RED?BLOOD?COUNT?(Miln/mm3) 4.87 4.61 ??HEMOGLOBIN?(gm/dl) 15.0 14.1 ??HEMATOCRIT?(%) 43.2 41.3 ??PLATELET?COUNT?(Thou/mm3) 224 202 ??NEUTROPHILS?%,?AUTO?(%) 67 67 ??LYMPH?%,?AUTO?(%) 21 25 ??NEUTROPHILS,?AUTO?(Thou/mm3) 4.0 5.3 ??GLUCOSE,RANDOM?(mg/dL) 119?H 86 ??BLOOD?UREA?NITROGEN?(mg/dL) 12 13 ??CREATININE?(mg/dL) 1.10 1.10 ??SODIUM?(mmol/L) 139 144 ??POTASSIUM?(mmol/L) 3.9 4.0 ??CHLORIDE?(mmol/L) 106 108?H ??CrCl?(CandG)?(ml/min) 77.29 77.81 ??AST/SGOT?(Unit/L) 667?HH 20 ??ALT/SGPT?(Unit/L) 592?HH 12 ??ALKALINE?PHOSPHATASE?(Unit/L) 238?H 60 ??BILIRUBIN,?TOTAL?(mg/dL) 3.9?H 0.9 ??PROTEIN?TOTAL?(gm/dl) 6.2 6.0 ??ALBUMIN,?SERUM?(gm/dl) 4.2 4.2 ??GLOBULIN?(gm/dl) 2.0?L 1.8?L ??ALBUMIN/GLOBULIN?RATIO 2.1 2.3?H ??CALCIUM,?SERUM?(mg/dL) 9.3 8.8 ??CALCIUM?SERUM?(CORRECTED)?(mg/dL) 9.3 8.8 ASSESSMENT/PLAN: 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 Bell last scan has been stable sarcoma Reviewed patient's records from [facility] Initially treated with gem cis followed by resection Patient received nivolumab and ipilimumab when he had recurrence Patient developed severe thyroiditis and hypophysitis Can try nivo in future on recurrence Patient was seen at sarcoma center and offered clinical trial. Patient at this time would like to wait until patient had a confirmed recurrence Pulmonary nodules Assessment: Patient has two pulmonary nodules identified on recent PET-CT scan dated February 28, 2025. The right upper lobe nodule measures 1.4 x 1.1 cm with minimal hypermetabolism (SUV max 1.9), slightly increased from previous measurement of 1.4 x 1.0 cm. The left lower lobe nodule measures 1.1 x 1.0 cm, unchanged in size. Multiple lymph nodes are noted to be stable. Compared to prior FDG PET from March 18, 2025, the bilateral nodules show similar size and minimal hypermetabolism. No suspicious new metastatic disease is identified. Left through knee amputation Assessment: Patient has a history of left through knee amputation. Recent PET-CT scan shows similar appearance of the amputation site with minor nonspecific uptake along the intercondylar notch. Plan: - Continue monitoring as part of overall follow-up 3. osteopenia Patient have low bone desity Will start on zometa dental clearance is obtained Patient is high risk for fracture as also on chronic steroids Continue calcium and vitamin D ORDERS: Order # Description [id number] Infusion 1 Hour RETURN TO CLINIC: I reviewed the diagnosis, prognosis, and recommended treatment/procedure options with the patient (and/or their legal leather goods sales representative), including the potential benefits, risks, side effects and alternative therapies. We also discussed the option of no treatment and the possibility of clinical trial participation, if applicable. All questions were addressed, and they demonstrated understanding. They provided informed consent to proceed with the proposed plan of care. BILLING AND COMPLIANCE: I reviewed external records from providers outside my specialty as summarized above. I spent a total of 50 minutes on this patient?s care on the day of their visit excluding time spent related to any billed procedures. This time includes time spent with the patient as well as time spent documenting in the medical record, reviewing patients records and tests, obtaining history, placing orders, communicating with other healthcare professionals, counseling the patient, family or caregiver, and/or care coordination for the diagnoses above. Electronically Signed by: Matt Wright MD T: 10:46 AM CC: Kirt?Yue? PCP: Ajith Khanna Referring: Ajith Khanna This document was completed utilizing speech recognition software. Grammatical errors, random word insertions, pronoun errors, and incomplete sentences are an occasional consequence of this system due to software limitations, ambient noise, and hardware issues. Any formal questions or concerns about the content, text or information contained within the body of this dictation should be directly addressed to the provider for clarification.
== END 2025-08-21 23:59 | disposition home or self-care (01) ==
LOC: SCTC 09:14
PROVIDERS: PCP Family Medicine; Referring Provider Family Medicine; Visit Provider Internal Medicine Hematology & Oncology
DX: C49.22 Malignant neoplasm of connective and soft tissue of left lower limb, including hip (principal); E23.0 Hypopituitarism; R91.8 Other nonspecific abnormal finding of lung field; Z89.512 Acquired absence of left leg below knee; M85.80 Other specified disorders of bone density and structure, unspecified site; I10 Essential (primary) hypertension
CPT/HCPCS: 36591; 80053; 84439; 84443; 85025; 99212; A4216; J1642; G0463